=== PATIENT | female | born 1970 | race Caucasian/White ===

== ENCOUNTER 2019-11-15 11:13 | Outpatient (CLI) | payer MEDICARE, MEDICAID, SELFPAY ==
--- NOTE | 2019-11-15 11:22 | MM_ITS ---
WS: [id number] BILATERAL DIGITAL SCREENING MAMMOGRAM WITH CAD CLINICAL INFORMATION: SCREENING HISTORY: Screening mammogram. No current complaints. COMPARISON: June 23, 2018 TECHNIQUE: Bilateral CC and MLO views. FINDINGS: Bilateral breast reduction Fatty-replaced breasts bilaterally. No suspicious focal mass, asymmetry, calcifications, or microsoft bi architect ural distortion. No evidence of malignancy. MM/[place] [id number] IMPRESSION: BI-RADS: 1-Negative FOLLOW UP: 1 Year Follow-up Recommend return to annual screening mammography.
== END 2019-11-15 11:14 | disposition home or self-care (01) ==
PROVIDERS: PCP Nurse Practitioner Family; Visit Provider Nurse Practitioner Family
DX: Z12.31 Encounter for screening mammogram for malignant neoplasm of breast (principal)
CPT/HCPCS: 77067

== ENCOUNTER → 2019-12-09 07:34 | Outpatient (BNVA) | payer MEDICARE, MEDICAID, SELFPAY | PROVIDERS: PCP Nurse Practitioner Family; Visit Provider Nurse Practitioner Psychiatric/Mental Health | DX: F33.1 Major depressive disorder, recurrent, moderate (principal); F43.12 Post-traumatic stress disorder, chronic; F60.3 Borderline personality disorder; F78 Other intellectual disabilities | CPT/HCPCS: 99213 ==

== ENCOUNTER 2020-03-05 13:26 | Outpatient (CLI) | payer MEDICARE, MEDICAID, SELFPAY ==
--- NOTE | 2020-03-05 13:32 | CT_ITS ---
WS: [id number] CT CHEST TECHNIQUE: Noncontrast CT of the chest with coronal and sagittal reformatted images. CLINICAL INFORMATION: CHRONIC COUGH COMPARISON: None. DLP: 672.[address] scans at [facility] use at least one of these dose optimization techniques: automat ed exposure control; mA and/or kV adjustment per patient size (includes targeted exams where dose is matched to clinical indication); or iterative reconstruction. FINDINGS: Both lungs are well aerated. No acute pulmonary infiltrates. No consolidation or pleural fluid. No fo micki pneumonia. No suspicious pulmonary parenchymal opacities. Normal cardiac silhouette. Visualized thyroid gland is normal. No axillary lymphadenopathy. No mediastinal or hilar lymphadenopathy. CT/CT chest [place] [id number] IMPRESSION: 1. Normal chest CT
== END 2020-03-05 13:27 | disposition home or self-care (01) ==
LOC: RAD 13:27
PROVIDERS: Family Provider Nurse Practitioner Family; PCP Nurse Practitioner Family; Visit Provider Nurse Practitioner Family
DX: R05 Cough (principal)
CPT/HCPCS: 71250

== ENCOUNTER → 2020-05-10 10:55 | Outpatient (BNVA) | payer MEDICARE, MEDICAID, SELFPAY | PROVIDERS: Family Provider Nurse Practitioner Family; PCP Nurse Practitioner Family; Visit Provider Nurse Practitioner Psychiatric/Mental Health | DX: F33.1 Major depressive disorder, recurrent, moderate (principal); F43.12 Post-traumatic stress disorder, chronic; F60.3 Borderline personality disorder; F78 Other intellectual disabilities | CPT/HCPCS: 99213 ==

== ENCOUNTER → 2020-10-08 09:09 | Outpatient (BNVA) | payer MEDICARE, MEDICAID, SELFPAY | PROVIDERS: Family Provider Nurse Practitioner Family; PCP Nurse Practitioner Family; Visit Provider Nurse Practitioner Psychiatric/Mental Health | DX: F33.1 Major depressive disorder, recurrent, moderate (principal); F43.12 Post-traumatic stress disorder, chronic; F60.3 Borderline personality disorder; F78 Other intellectual disabilities | CPT/HCPCS: 99214 ==

== ENCOUNTER → 2020-12-03 10:18 | Outpatient (BNVA) | payer MEDICARE, MEDICAID, SELFPAY | PROVIDERS: Family Provider Nurse Practitioner Family; PCP Nurse Practitioner Family; Visit Provider Nurse Practitioner Psychiatric/Mental Health | DX: F33.1 Major depressive disorder, recurrent, moderate (principal); F43.12 Post-traumatic stress disorder, chronic; F60.3 Borderline personality disorder; F78 Other intellectual disabilities | CPT/HCPCS: 99213 ==

== ENCOUNTER → 2021-02-26 07:28 | Outpatient (BNVA) | payer MEDICARE, MEDICAID, SELFPAY | PROVIDERS: Family Provider Nurse Practitioner Family; PCP Nurse Practitioner Family; Visit Provider Nurse Practitioner Psychiatric/Mental Health | DX: F33.1 Major depressive disorder, recurrent, moderate (principal); F43.12 Post-traumatic stress disorder, chronic; F60.3 Borderline personality disorder; F78 Other intellectual disabilities | CPT/HCPCS: 99214 ==

== ENCOUNTER → 2021-03-13 07:37 | Outpatient (BNVA) | payer MEDICARE, MEDICAID, SELFPAY | PROVIDERS: Family Provider Nurse Practitioner Family; PCP Nurse Practitioner Family; Visit Provider Nurse Practitioner Psychiatric/Mental Health | DX: F33.1 Major depressive disorder, recurrent, moderate (principal); F43.12 Post-traumatic stress disorder, chronic; F60.3 Borderline personality disorder; F78 Other intellectual disabilities | CPT/HCPCS: 99214 ==

== ENCOUNTER → 2021-04-11 07:17 | Outpatient (BNVA) | payer MEDICARE, MEDICAID, SELFPAY | PROVIDERS: Family Provider Nurse Practitioner Family; PCP Nurse Practitioner Family; Visit Provider Nurse Practitioner Psychiatric/Mental Health | DX: F33.1 Major depressive disorder, recurrent, moderate (principal); F43.12 Post-traumatic stress disorder, chronic; F60.3 Borderline personality disorder; F78 Other intellectual disabilities | CPT/HCPCS: 99214 ==

== ENCOUNTER → 2021-07-11 08:48 | Outpatient (BNVA) | payer MEDICARE, MEDICAID, SELFPAY | PROVIDERS: Family Provider Nurse Practitioner Family; PCP Nurse Practitioner Family; Visit Provider Nurse Practitioner Psychiatric/Mental Health | DX: F33.1 Major depressive disorder, recurrent, moderate (principal); F43.12 Post-traumatic stress disorder, chronic; F60.3 Borderline personality disorder; Z79.899 Other long term (current) drug therapy | CPT/HCPCS: 99214 ==

== ENCOUNTER → 2021-08-20 12:56 | Outpatient (BNVA) | payer MEDICARE, MEDICAID, SELFPAY | PROVIDERS: Family Provider Nurse Practitioner Family; PCP Nurse Practitioner Family; Visit Provider Specialist | DX: G40.219 Localization-related (focal) (partial) symptomatic epilepsy and epileptic syndromes with complex partial seizures, intractable, without status epilepticus (principal); E66.01 Morbid (severe) obesity due to excess calories; Z68.45 Body mass index [BMI] 70 or greater, adult; Z99.3 Dependence on wheelchair | CPT/HCPCS: 99213 ==

== ENCOUNTER 2021-09-29 19:56 | Inpatient (IN) | payer MEDICARE, MEDICAID, SELFPAY ==
[2021-09-29 20:00] VITALS: BP 118/72; PULSE 90; RESP 28; TEMP 36.7; O2SAT 91; BMI 75.9
--- NOTE | 2021-09-29 20:24 | XRR_ITS ---
PROCEDURE INFORMATION: Exam: XR Chest Exam date and time: 09/29/2021 8:24 PM Age: 51 years old Clinical indication: Dyspnea; Additional info: SOB TECHNIQUE: Imaging protocol: XR of the chest. Views: 1 view. COMPARISON: CT chest [facility] [id number] 03/05/2020 1:48 PM FINDINGS: Lungs: Widespread patchy parenchymal airspace opacities in both lungs. Poorly defined pulmonary interstitium. Pleural spaces: Unremarkable. No pleural effusion. No pneumothorax. Heart/Mediastinum: Unremarkable. No cardiomegaly. Bones/joints: Unremarkable. XR/XR chest 1V portable [id number] IMPRESSION: Suspect multifocal nonspecific pneumonia process.
--- NOTE | 2021-09-29 20:25 | ECG_ITS ---
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 Measurements Intervals [place] Rate: 83 P: 11 IA: 135 QRS: 37 QRSD: 107 T: 0 QT: 368 QTc: 434 Interpretive Statements SINUS RHYTHM LOW QRS VOLTAGE IN PRECORDIAL LEADS [QRS DEFLECTION < 1.0 mV IN CHEST LEADS] NONSPECIFIC T-WAVE ABNORMALITY No previous ECG available for comparison Electronically Signed On 09-30-2021 23:51:10 MEDICAL UNDERWRITER by Jp Velez M.D. [email or web address] general [email or web address] [email or web address]/store/[id number]
[2021-09-29 20:27] VITALS: BP 118/72; PULSE 92; RESP 24; O2SAT 91
[2021-09-29] MEDS: dexamethasone 10 mg/mL INJ 6 MG IVP (20:35)
[2021-09-29 20:44] LABS: Troponin(5th) Baseline 14 ng/L (0-10)
[2021-09-29 20:54] LABS: D Dimer 1.27 ug/mIFEU (0-0.59)
[2021-09-29 20:55] LABS: Basophils % 0.2 %; Hemoglobin 13.3 g/dL (11.5-15.3); Lymphocytes # 0.4 10^3/uL (0.8-4.8); Lymphocytes % 6.5 %; Mean Corpuscular HGB Conc 32.4 g/dL (30.0-36.0); Mean Corpuscular Hemoglobin 24.7 pg (28.0-34.0); Mean Corpuscular Volume 76.2 fl (81-99); Mean Platelet Volume 9.5 fL (7.4-10.4); Monocytes # 0.2 10^3/uL (0.2-0.9); Monocytes % 3.5 %; Neutrophils # 5.91 10^3/uL (1.8-7.7); Neutrophils % 89.3 %; Nucleated Red Blood Cells % 0 %; Platelet Count 180 10^3/cmm (130-400); Red Blood Count 5.38 10^6/uL (4.1-5.3); Red Cell Distribution Width 16.6 % (12.1-15.1); White Blood Count 6.6 10^3/uL (4.0-10.0)
[2021-09-29 21:05] LABS: NT Pro B Type Natriuretic Pept 302 pg/mL (0-125); Procalcitonin 0.14 ng/mL (0-0.5)
[2021-09-29 21:16] LABS: Alanine Aminotransferase 35 U/L (0-33); Albumin Level 3.2 g/dL (3.5-5.2); Alkaline Phosphatase 69 IU/L (35-105); Blood Urea Nitrogen 11 mg/dL (6-20); C Reactive Protein 114.2 mg/L (0.0-4.9); Calcium 7.4 mg/dL (8.5-10.5); Carbon Dioxide 25 mmol/L (22-29); Chloride 91 mmol/L (98-107); Globulin 2.6 g/dL (1.3-4.6); Glomerular Filtration Rate 75.9 mL/min (90-130); Glucose 123 mg/dL (65-115); Osmolality Calculated 271 mOsm/kg (285-295); Sodium 130 mmol/L (136-145); Total Bilirubin 0.4 mg/dL (0.15-1.2); Total Protein 5.8 g/dL (6.6-8.7)
[2021-09-29 21:18] LABS: Anion Gap 18.3 (5-19); Aspartate Amino Transferase 47 U/L (0-32); Potassium 4.3 mmol/L (3.5-5.1)
[2021-09-29 21:29] VITALS: BP 128/76; PULSE 81; RESP 22; O2SAT 93
--- NOTE | 2021-09-29 21:43 | W.ED.SOB ---
HPI - SOB/Dyspnea General: Chief Complaint: ER Hold Stated Complaint: SOB Time Seen by Provider: 09/29/21 20:00 History of Present Illness: HPI Narrative: 51-year-old morbidly obese female presenting with shortness of breath. She states she has had a cough and some congestion. She is also had diarrhea. No vomiting. She has had body aches but no fever. She has had an exposure to COVID-19. MD elicited complaint: shortness of breath Pertinent past history: asthma and other Exacerbating factors: exertion Relieving factors: oxygen Known history of: asthma Associated symptoms: Reports chest congestion and cough; Deny abdominal pain, chest pain, diaphoresis, dizziness, fever(s) or vomiting Treatment prior to arrival: none Review of Systems Const: Denies: fever(s) or diaphoresis Card: Denies: chest pain Resp: Reports: chest congestion GI: Denies: abdominal pain or vomiting Neuro: Denies: dizziness PFSH ED PFSH: Medical History Borderline personality disorder Chronic post-traumatic stress disorder Intellectual functioning disability History of since child lucas Major depressive disorder, recurrent episode, moderate with anxious distress Morbid obesity Psychiatric care Sleep apnea Surgical History H/O uvulectomy And soft palate revision. S/P bilateral breast reduction (~1998) S/P colonoscopy (~06/2009) S/P tonsillectomy Family History Mother Diabetes Heart disease Hyperlipidemia Stroke Grandfather Diabetes Paternal Family/Other Diabetes Maternal Aunt Grandmother Heart disease Maternal Other Breast cancer Social History Smoking and tobacco status: never smoked Alcohol intake: never Physical Exam Const: GENERAL APPEARANCE: cooperative, in distress and ill appearing ORIENTATION/CONSCIOUSNESS: Yes awake, Yes oriented to person, Yes oriented to place and Yes oriented to time HENMT: COMMON NORMALS: normocephalic and atraumatic HEAD & SCALP: normocephalic and atraumatic FACE & SINUS: normal facial exam Eye: COMMON NORMALS: Equal, round and reactive pupils present and EOMs intact bilaterally PUPIL: Yes Equal, round and reactive pupils present Chest: COMMONS NORMALS: normal inspection of the chest Resp: EFFORT & INSPECTION: Yes tachypneic and Yes uses accessory muscles AUSCULTATION: rhonchi (Slight on right) Cardio: COMMON NORMALS: regular rate and regular rhythm RATE: regular rate RHYTHM: regular rhythm Neuro: SENSORIUM/ORIENTATION: Yes oriented to person, Yes oriented to place and Yes oriented to time Course Vital Signs: Vital signs: Vital Signs Temperature 98.0 F 09/29/21 20:00 Pulse Rate 80 09/30/21 00:45 Respiratory Rate 26 H 09/30/21 00:45 Blood Pressure 102/64 09/30/21 00:45 Pulse Oximetry 93 09/30/21 00:45 MDM - SOB/Dyspnea MDM Narrative: Medical decision making narrative: 51-year-old female presents in respiratory distress. She is using 6 L of oxygen, currently. She does not normally need oxygen. Chest x-ray shows bilateral pneumonia that is significant. White blood cell count is 6.6. Sodium is 130. She is vaccinated, but she is COVID-19 positive. Given her oxygen requirement, and look of her chest x-ray, she will require admission Lab Data: Labs: Lab Results 09/29/21 09/29/21 09/29/21 19:50 19:50 19:50 WBC RBC Hgb Hct MCV MCH MCHC RDW Plt Count MPV Neut % (Auto) Lymph % (Auto) Anderson % (Auto) Eos % (Auto) Baso % (Auto) Neut # (Auto) Lymph # (Auto) Anderson # (Auto) Eos # (Auto) Baso # (Auto) Nucleated RBC % (a uto) Nucleated RBCs # D-Dimer 1.27 ug/mIFEU H u g/mIFEU (0-0.59) Specimen Type Sample Site ABG pH ABG pCO2 ABG pO2 ABG HCO3 ABG Base Excess Gelacio Test Hematocrit Hgb O2 Saturation Carboxyhemoglobin Methemoglobin Total Hemoglobin O2 Delivery Device O2 Liters/Min Slitting And Shipping Supervisor ID Sodium 130 mmol/L L mmol /L (136-145) Potassium 4.3 mmol/L mmol/L (3.5-5.1) Chloride 91 mmol/L L mmol/ L (98-107) Carbon Dioxide 25 mmol/L mmol/L (22-29) Anion Gap 18.3 (5-19) BUN 11 mg/dL mg/dL (6-20) Creatinine 0.8 mg/dL mg/dL (0.5-0.9) GFR Calculation 75.9 mL/min L mL/ min (90-130) Glucose 123 mg/dL H mg/dL (65-115) Calculated Osmolal ity 271 mOsm/kg L mOs m/kg (285-295) Lactic Acid Calcium 7.4 mg/dL L mg/dL (8.5-10.5) Total Bilirubin 0.4 mg/dL mg/dL (0.15-1.2) AST 47 U/L H U/L (0-32) ALT 35 U/L H U/L (0-33) Alkaline Phosphata se 69 IU/L IU/L (35-105) Troponin T Baselin e 14 ng/L H ng/L (0-10) Troponin T 120 Min [place] Delta Troponin T C-Reactive Protein 114.2 mg/L H mg/L (0.0-4.9) NT-Pro-B Natriuret Pep 302 pg/mL H pg/mL (0-125) Total Protein 5.8 g/dL L g/dL (6.6-8.7) Albumin 3.2 g/dL L g/dL (3.5-5.2) Globulin 2.6 g/dL g/dL (1.3-4.6) Procalcitonin 0.14 ng/mL ng/mL (0-0.5) Coronavirus 229E ( PCR) SARS-CoV-2 (PCR) 09/29/21 09/29/21 09/29/21 20:42 20:42 21:00 WBC 6.6 10^3/uL 10^3/ uL (4.0-10.0) RBC 5.38 10^6/uL H 10 ^6/uL (4.1-5.3) Hgb 13.3 g/dL g/dL (11.5-15.3) Hct 41.0 % % (37.0-47.0) MCV 76.2 fl L fl (81-99) MCH 24.7 pg L pg (28.0-34.0) MCHC 32.4 g/dL g/dL (30.0-36.0) RDW 16.6 % H % (12.1-15.1) Plt Count 180 10^3/cmm 10^3 /cmm (130-400) MPV 9.5 fL fL (7.4-10.4) Neut % (Auto) 89.3 % % Lymph % (Auto) 6.5 % % Anderson % (Auto) 3.5 % % Eos % (Auto) 0.0 % % Baso % (Auto) 0.2 % % Neut # (Auto) 5.91 10^3/uL 10^3 /uL (1.8-7.7) Lymph # (Auto) 0.4 10^3/uL L 10^ 3/uL (0.8-4.8) Anderson # (Auto) 0.2 10^3/uL 10^3/ uL (0.2-0.9) Eos # (Auto) 0.0 10^3/uL 10^3/ uL (0.0-0.8) Baso # (Auto) 0.0 10^3/uL 10^3/ uL (0.0-0.1) Nucleated RBC % (a uto) 0 % % Nucleated RBCs # 0.0 /100WBC /100W BC D-Dimer Specimen Type Sample Site ABG pH ABG pCO2 ABG pO2 ABG HCO3 ABG Base Excess Gelacio Test Hematocrit Hgb O2 Saturation Carboxyhemoglobin Methemoglobin Total Hemoglobin O2 Delivery Device O2 Liters/Min Slitting And Shipping Supervisor ID Sodium Potassium Chloride Carbon Dioxide Anion Gap BUN Creatinine GFR Calculation Glucose Calculated Osmolal ity Lactic Acid 1.0 mmol/L mmol/L (0.5-2.2) Calcium Total Bilirubin AST ALT Alkaline Phosphata se Troponin T Baselin e Troponin T 120 Min [place] Delta Troponin T C-Reactive Protein NT-Pro-B Natriuret Pep Total Protein Albumin Globulin Procalcitonin Coronavirus 229E ( PCR) Not detected (NOT DETECT) SARS-CoV-2 (PCR) Detected A (NOT DETECT) 09/29/21 09/29/21 22:03 22:10 WBC RBC Hgb Hct MCV MCH MCHC RDW Plt Count MPV Neut % (Auto) Lymph % (Auto) Anderson % (Auto) Eos % (Auto) Baso % (Auto) Neut # (Auto) Lymph # (Auto) Anderson # (Auto) Eos # (Auto) Baso # (Auto) Nucleated RBC % (a uto) Nucleated RBCs # D-Dimer Specimen Type Arterial Sample Site Radial, left ABG pH 7.44 (7.35-7.45) ABG pCO2 44.0 mmHg mmHg (35-45) ABG pO2 64.6 mmHg L mmHg (80.0-100.0) ABG HCO3 29.9 mmol/L H mmo l/L (22-26) ABG Base Excess 5.0 mmol/L H mmol /L (-2.0-2.0) Gelacio Test Pos Hematocrit 42.2 % % (37-47) Hgb O2 Saturation 91.9 % L % (95-100) Carboxyhemoglobin 0.7 %THgb %THgb (0.4-20.1) Methemoglobin 0.5 % % (0.4-1.5) Total Hemoglobin 13.8 g/dL g/dL (12-16) O2 Delivery Device Nc O2 Liters/Min 5.0 % % Slitting And Shipping Supervisor ID Buttr Sodium Potassium Chloride Carbon Dioxide Anion Gap BUN Creatinine GFR Calculation Glucose Calculated Osmolal ity Lactic Acid Calcium Total Bilirubin AST ALT Alkaline Phosphata se Troponin T Baselin e Troponin T 120 Min [place] 13.09 ng/L H ng/L (0-10) Delta Troponin T -0.91 ABS# L ABS# (0-10) C-Reactive Protein NT-Pro-B Natriuret Pep Total Protein Albumin Globulin Procalcitonin Coronavirus 229E ( PCR) SARS-CoV-2 (PCR) Discharge Plan Discharge Patient Disposition: Admitted As Inpatient Clinical Impression: Pneumonia due to COVID-19 virus Condition: Stable Coding Level of Care Code ED Ethylene Plant Helper for g Fwd Exam Detailed
[2021-09-29 22:14] LABS: ABG PH Result 7.44 (7.35-7.45); Arterial Blood Gas Hematocrit 42.2 % (37-47); Blood Gas Allen Test Pos; Blood Gas Sample Site Radial, left; Blood Gas Sample Type Arterial; Carboxyhemoglobin 0.7 %THgb (0.4-20.1); HCO3 ABG 29.9 mmol/L (22-26); HGB O2 Sat 91.9 % (95-100); Methemoglobin 0.5 % (0.4-1.5); PO2 ABG 64.6 mmHg (80.0-100.0); Total Hemoglobin 13.8 g/dL (12-16)
[2021-09-29 22:15] LABS: Oxygen Device NC
--- NOTE | 2021-09-29 22:15 | PM.HP ---
Providers/Chief Complaint Primary Care Provider: JOSE A Thacker Chief Complaint: SOB History of Present Illness Lisa Pretty is a 51 year old female with no significant past medical history came in with chief complaint of Worsening shortness of breath going on for the last 3 to 4 days, accompanied by nonproductive cough, she is also complaining of diarrhea 4-5 episodes daily for the last 3 to 4 days. Upon arrival in the ER she was worked up for above-mentioned complaints: Pertinent imaging studies: X-ray chest: Bilateral widespread multifocal infiltrate. Pertinent labs: WBC 6.6 H&H 13.3/ 41 , PLT : 180 , serum sodium 130 serum potassium 4.3, BUN / serum creatinine : 11/0.8 , AST 47 ALT 35 ALP 69, troponin trend without significant delta of, proBNP 302 D-dimer: 1.27 , CRP:114 , procalcitonin: 0.14 COVID PCR : Positive Patient received 6 mg IV dexamethasone in the ER Review of Systems Const: Denies: fever(s), change in appetite or diaphoresis Card: Denies: palpitations, edema, swelling of feet/ankles or leg pain with exertion Resp: Denies: wheezing or pain on inspiration GI: Denies: abdominal pain, nausea, vomiting or constipation : Denies: flank pain Musc: Denies: back pain, extremity pain or extremity swelling Neuro: Denies: headache(s), difficulty walking or confusion Medications/Allergies Home Medications Medication Instructions Recorded Confirmed Last Taken Type albuterol sulfate 90 mcg/actuation 2 inh INHALATION Q6H PRN 12/08/19 08/20/21 Unknown History breath activated powder inhaler hydrocodone 5 mg-acetaminophen 325 1 tab PO BID PRN 12/08/19 08/20/21 Unknown History mg tablet omeprazole 40 mg capsule,delayed 40 mg PO DAILY 12/08/19 08/20/21 Unknown History release furosemide 20 mg tablet 40 mg PO QAM tab 11/29/20 08/20/21 Unknown History potassium chloride 10 mEq 20 meq PO DAILY tab 11/29/20 08/20/21 Unknown History tablet,extended release(part/cryst) bupropion HCl 200 mg tablet,12 hr 200 mg PO .morning #90 tab 07/11/21 08/20/21 Unknown Rx sustained-release hydroxyzine HCl 50 mg tablet 50 mg PO BID PRN #60 tab 07/11/21 08/20/21 Unknown Rx zolpidem 5 mg tablet 5 mg PO .bedtime #30 tab 07/11/21 08/20/21 Unknown Rx lamotrigine 100 mg tablet See Rx Instructions .ROUTE 08/20/21 08/20/21 Unknown Rx .COMPLEX #180 tab Allergies Allergy/AdvReac Type Severity Reaction Status Date / Time aripiprazole [From Abilify] Allergy Unknown Verified 08/20/21 13:37 fluoxetine [From Prozac] Allergy Unknown Verified 08/20/21 13:37 haloperidol [From Haldol] Allergy Unknown Verified 08/20/21 13:37 Sulfa (Sulfonamide Allergy Unknown Verified 08/20/21 13:37 Antibiotics) PFSH Acute PFSH: Medical History Borderline personality disorder Chronic post-traumatic stress disorder Intellectual functioning disability History of since child lucas Major depressive disorder, recurrent episode, moderate with anxious distress Morbid obesity Psychiatric care Sleep apnea Surgical History H/O uvulectomy And soft palate revision. S/P bilateral breast reduction (~1998) S/P colonoscopy (~06/2009) S/P tonsillectomy Family History Mother Diabetes Heart disease Hyperlipidemia Stroke Grandfather Diabetes Paternal Family/Other Diabetes Maternal Aunt Grandmother Heart disease Maternal Other Breast cancer Social History Smoking and tobacco status: never smoked Alcohol intake: never Vitals/I&O/Wt Last Vital Signs Temp 98.0 F 09/29/21 20:00 Pulse 81 09/29/21 21:29 Resp 22 H 09/29/21 21:29 BP 128/76 09/29/21 21:29 Pulse Ox 93 09/29/21 21:29 Weight last 48 hrs Weight 170.551 kg Physical Exam Const: COMMON NORMALS: patient oriented x3 HENMT: COMMON NORMALS: normocephalic and atraumatic HEAD & SCALP: normocephalic Resp: COMMON NORMALS: No retractions and clear to auscultation bilaterally EFFORT & INSPECTION: Yes symmetric chest movement AUSCULTATION: clear to auscultation bilaterally OTHER: Diminished air entry bilaterally Cardio: COMMON NORMALS: regular rate, regular rhythm, S1 normal heart sound present, S2 normal heart sound present, No gallops present (Cardio), No murmurs present (Cardio), No rub (Cardio) and Peripheral pulses 2+ throughout RATE: regular rate RHYTHM: regular rhythm HEART SOUNDS: S1 normal heart sound present and S2 normal heart sound present PERIPHERAL PULSES: Peripheral pulses 2+ throughout GI: COMMON NORMALS: Normal to inspection, nondistended, normoactive bowel sounds present, Soft to palpation, non-tender, No hepatosplenomegaly present and no masses AUSCULTATION: Yes normoactive bowel sounds PALPATION: Yes Soft to palpation and Yes No hepatosplenomegaly present RECTAL EXAM: deferred Extremity: COMMON NORMALS: no clubbing, cyanosis or edema and no pedal edema Neuro: COMMON NORMALS: patient oriented x3 Data : 09/29/21 20:42 09/29/21 19:50 Micro: Microbiology 09/29/21 20:45 Blood Culture - Preliminary Blood SPECIMEN COLLECTED 09/29/21 20:42 Blood Culture - Preliminary Blood SPECIMEN COLLECTED A&P Assessment and plan (1) Pneumonia due to COVID-19 virus: Status: Acute (2) Morbid obesity: Status: Acute (3) Hyponatremia: Status: Acute (4) Diarrhea: Status: Acute Additional A&P Information 51 year old female with no significant past medical history came in with chief complaint of Worsening shortness of breath going on for the last 3 to 4 days, accompanied by nonproductive cough, she is also complaining of diarrhea 4-5 episodes daily for the last 3 to 4 days. #Pneumonia secondary to COVID-19 virus: Follow inflammatory markers (ESR CRP D-dimer LDH, ferritin) Follow blood culture Sputum culture Monitor x-ray chest Monitor ABG Continue remdesivir for 5 days Continue dexamethasone 6 mg IV daily for 10 days Status post 1 dose of Actemra Empirically on ceftriaxone and azithromycin Lovenox 40 SQ twice daily Supplemental oxygen as needed DuoNebs Incentive spirometer Flutter valve #Hypovolemic hyponatremia: Likely secondary to diarrhea and poor oral intake Monitor BMP We will encourage oral intake #Diarrhea likely secondary to viral syndrome Stool studies #CODE STATUS: Full code Attestations Medical Necessity Statement*: Patient is to be in hospital for management of COVID-pneumonia.Anticipated length of stay greater than 2 midnights. Coding Level of Care Code Acute Assisted Living Housekeeper for g Fwd Exam Detailed Diagnoses Pneumonia due to COVID-19 virus U07.1; J12.82 Morbid obesity E66.01 Hyponatremia E87.1 Diarrhea R19.7
--- NOTE | 2021-09-29 22:25 | ECG_ITS ---
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 Measurements Intervals [place] Rate: 80 P: 23 MT: 134 QRS: 55 QRSD: 89 T: 30 QT: 389 QTc: 451 Interpretive Statements SINUS RHYTHM Compared to ECG 09/29/2021 20:44:10 T-wave abnormality no longer present Electronically Signed On 09-30-2021 23:58:46 RESEARCH BIOLOGIST by Jp Velez M.D. [email or web address] Grouphighland community hospitalWavemaker Softwarejoint township district memorial hospitalCardinal Media Technologies/store/OM/[id number]/ecg/[id number]
[2021-09-29 22:54] VITALS: BP 159/69; PULSE 77; RESP 22; O2SAT 92
[2021-09-29 22:56] LABS: Adenovirus Not Detected (NOT DETECT); Chlamydia Pneumoniae Not Detected (NOT DETECT); Coronavirus 229E,HKU1,NL63,OC4 Not Detected (NOT DETECT); Human Metapneumovirus Not Detected (NOT DETECT); Human Rhinovirus/Enterovirus Not Detected (NOT DETECT); Influenza A Not Detected (NOT DETECT); Influenza A H1 Not Detected (NOT DETECT); Influenza A H1-2009 Not Detected (NOT DETECT); Influenza A H3 Not Detected (NOT DETECT); Influenza B Not Detected (NOT DETECT); Mycoplasma Pneumoniae Not Detected (NOT DETECT); Parainfluenza Virus Type 1 Not Detected (NOT DETECT); Parainfluenza Virus Type 2 Not Detected (NOT DETECT); Parainfluenza Virus Type 3 Not Detected (NOT DETECT); Parainfluenza Virus Type 4 Not Detected (NOT DETECT); Respiratory Syncytial Virus A Not Detected (NOT DETECT); Respiratory Syncytial Virus B Not Detected (NOT DETECT); SARS-COV-2 Detected (NOT DETECT)
[2021-09-29 23:06] LABS: Troponin 5 2HR 13.09 ng/L (0-10)
[2021-09-29] MEDS: ipratropium-albuterol 3 mL Neb INHALATION (23:09)
[2021-09-29 23:13] VITALS: PULSE 76; RESP 22; O2SAT 90
[2021-09-29 23:14] LABS: Troponin 5 2HR Delta -0.91 ABS# (0-10)
[2021-09-29] MEDS: cefTRIAXone 1,000 MG in sodium chloride 0.9% (plus) 50 ML 100 MG IV (23:34)
[2021-09-29] MEDS: enoxaparin 40 mg/0.4 mL Syringe SUBCUT (23:35)
[2021-09-29] MEDS: azithromycin 500 MG in sodium chloride 0.9% 250 ML 250 MG IV (23:42)
[2021-09-30] VITALS (16 sets, daily range): BP systolic 102–150; BP diastolic 59–77; PULSE 0–82; RESP 14–26; TEMP 36.3–36.8; O2SAT 90–98
[2021-09-30] MEDS: remdesivir 200 MG in sodium chloride 0.9% (100 ml) 60 ML 100 MG IV (01:12)
[2021-09-30] MEDS: tocilizumab 800 MG in sodium chloride 0.9% (100 ml) 100 ML 100 MG IV (02:04)
--- NOTE | 2021-09-30 02:25 | ECG_ITS ---
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 Measurements Intervals [place] Rate: 72 P: 26 WA: 143 QRS: 49 QRSD: 102 T: 19 QT: 414 QTc: 455 Interpretive Statements SINUS RHYTHM Compared to ECG 09/29/2021 22:33:03 No significant changes Electronically Signed On 09-30-2021 23:59:14 JUNK REMOVAL SPECIALIST by Jp Velez M.D. [email or web address] health madisonUtripmercy health clermont hospitalCAILabs/store/OM/[id number]
[2021-09-30 02:32] LABS: Basophils % 0.2 %; Hematocrit 42.1 % (37.0-47.0); Hemoglobin 13.1 g/dL (11.5-15.3); Lymphocytes # 0.3 10^3/uL (0.8-4.8); Lymphocytes % 5.5 %; Mean Corpuscular HGB Conc 31.1 g/dL (30.0-36.0); Mean Corpuscular Volume 77.1 fl (81-99); Mean Platelet Volume 9.8 fL (7.4-10.4); Monocytes # 0.2 10^3/uL (0.2-0.9); Monocytes % 2.6 %; Neutrophils # 5.37 10^3/uL (1.8-7.7); Neutrophils % 91.4 %; Nucleated Red Blood Cells % 0 %; Platelet Count 181 10^3/cmm (130-400); Red Blood Count 5.46 10^6/uL (4.1-5.3); Red Cell Distribution Width 16.5 % (12.1-15.1); White Blood Count 5.9 10^3/uL (4.0-10.0)
[2021-09-30 02:48] LABS: Troponin 5 6HR 9.57 ng/L (0-10); Troponin 5 6HR Delta -4.43 ng/L (0-12)
[2021-09-30 02:52] LABS: Alanine Aminotransferase 34 U/L (0-33); Albumin Level 3.2 g/dL (3.5-5.2); Alkaline Phosphatase 61 IU/L (35-105); Anion Gap 19.2 (5-19); Aspartate Amino Transferase 37 U/L (0-32); Blood Urea Nitrogen 10 mg/dL (6-20); Calcium 7.9 mg/dL (8.5-10.5); Carbon Dioxide 23 mmol/L (22-29); Chloride 95 mmol/L (98-107); Globulin 2.5 g/dL (1.3-4.6); Glomerular Filtration Rate 105.8 mL/min (90-130); Glucose 148 mg/dL (65-115); Osmolality Calculated 280 mOsm/kg (285-295); Potassium 3.2 mmol/L (3.5-5.1); Sodium 134 mmol/L (136-145); Total Bilirubin 0.3 mg/dL (0.15-1.2); Total Protein 5.7 g/dL (6.6-8.7)
[2021-09-30 02:54] LABS: Creatine Phosphokinase 699 U/L (26-192)
[2021-09-30] MEDS: ipratropium-albuterol 3 mL Neb INHALATION ×4 (04:52→21:01)
--- NOTE | 2021-09-30 08:28 | PC.PHAR ---
pt states she takes care of her own medications
[2021-09-30] MEDS: pantoprazole DR 40 mg Tablet PO (10:12)
[2021-09-30] MEDS: dexamethasone 10 mg/mL INJ 6 MG IVP (10:12)
--- NOTE | 2021-09-30 14:12 | CT_ITS ---
WS: [id number] CTA OF THE CHEST WITH PULMONARY EMBOLISM PROTOCOL TECHNIQUE: High-resolution contrast enhanced CTA of the chest with coronal and sagittal reformatted i mages with pulmonary embolism protocol. MIP images are also reviewed. CLINICAL INFORMATION: covid, elevated dimer COMPARISON: CT chest March 05, 2020 and radiograph September 29, 2021 DLP: 506.[address] scans at [facility] use at least one of these dose optimization techniques: automated e xposure control; mA and/or kV adjustment per patient size (includes targeted exams where dose is matc hed to clinical indication); or iterative reconstruction. FINDINGS: Exam is limited due to body habitus and breathing artifact. Proximal main pulmonary arteries are normal. Normal segmental pulmonary arteries considering artifact . Subsegmental pulmonary arteries not well evaluated. Diffuse bilateral groundglass infiltrates similar to radiograph September 29, 2027 compatible with Covi d 19 pneumonia. No significant pleural fluid. Infiltrates more prominent in the perihilar regions and upper lobes bilaterally. Cardiomegaly. Normal caliber thoracic aorta. No mediastinal or hilar lymphadenopathy. No axillary lym phadenopathy. CT/CT angio chest PE protcl [id number] IMPRESSION: 1. No evidence of proximal pulmonary embolus. Subsegmental and distal pulmonar y arteries not well evaluated. 2. Diffuse bilateral groundglass pulmonary infiltrates compatible with Covid 1 9 pneumonia appears stable since radiograph September 29, 2021. This is more prom inent in the perihilar regions and upper lobes bilaterally. 3. Normal caliber thoracic aorta. 4. Cardiomegaly.
[2021-09-30 14:59] LABS: NT Pro B Type Natriuretic Pept 312 pg/mL (0-125); Procalcitonin 0.17 ng/mL (0-0.5)
[2021-09-30 15:10] LABS: Iron 13 ug/dL (37-145); Percent Saturation 5.5 % (20-50); Total Iron Binding Capacity 236 mcg/dl; Unsaturated Iron Binding 223 ug/dL (112-347)
--- NOTE | 2021-09-30 15:17 | P.PN_ITS ---
Subjective Subjective: Interval history: Admitted overnight. Examination patient lying comfortably in bed in left lateral position, without clothes covered in bed sheet. Awake alert. Able to have complete conversation. States feeling hot. Currently on 40 L 65% saturating 88%. States was diag nosed with sleep apnea in the past but was not able to tolerate BiPAP so was taken away. Currently states he is feeling better than when she came in. Denies any nausea vomiting, headache. Vitals/I&O/Wt Last Vital Signs Temp 98.0 F 09/29/21 20:00 Pulse 67 09/30/21 12:28 Resp 18 09/30/21 12:28 BP 120/77 09/30/21 05:55 Pulse Ox 93 09/30/21 12:28 09/30/21 09/30/21 09/30/21 06:59 14:59 22:59 Intake Total 360 / 360 Balance 360 / 360 Weight last 48 hrs Weight 170.551 kg Physical Exam Narrative: EXAM NARRATIVE: General: No acute distress, AO x3, morbid obesity, cushingoid body habitus, on heated high flow HEENT: PERRLA,: Pupils bilaterally equal and reactive Chest: Bilateral bronchial breath sounds, occasional rhonchi present over the lung bedoya, decreased air entry all over the lung bedoya most likely from body habitus CVS: S1-S2 regular, no murmurs, no tachycardia, no gallops, no rubs Abdomen: Soft, nontender, no organomegaly, bowel sounds present Neuro: No focal deficits, no facial deformity, AO x3, power 5/5 in all limbs Data : 09/30/21 02:17 09/30/21 02:17 Micro: Microbiology 09/29/21 20:45 Blood Culture - Preliminary Blood SPECIMEN COLLECTED 09/29/21 20:42 Blood Culture - Preliminary Blood SPECIMEN COLLECTED A&P Assessment and plan (1) Pneumonia due to COVID-19 virus: Status: Acute (2) Morbid obesity: Status: Acute (3) Obstructive sleep apnea: Status: Acute (4) Hyponatremia: Status: Acute (5) Respiratory failure with hypoxia: Status: Acute Additional A&P Information Hypoxia secondary to COVID-19 pneumonia: Moderate to severe disease Oxygen supplementation keeping saturation over 88%. Dexamethasone 6 mg daily. Remdesivir to finish a 5-day course. Vitamin C, zinc. DuoNebs every 4 hour, budesonide twice daily Pulmonary toilet with incentive spirometry flutter valve. We will monitor inflammatory markers including CRP, D-dimer every 48 hours. Post 1 dose of Actemra on admission on September 29 D-dimer elevated. Check CTA to rule out pulmonary embolism. Switch from Lovenox 40 mg every 12 hourly to Eliquis 5 mg twice daily. Will monitor for anemia or blood loss. Procalcitonin negative, check sputum culture, urine Legionella, bacterial antigen, urinalysis. For now low suspicion of superimposed bacterial infection. Continue with azithromycin orally to finish a 5-day course. Given hypoxia will try to keep patient as negative as possible. Raman catheterization. Lasix 40 mg IV once. Strict input output charting, daily weights. Echocardiogram. Obstructive sleep apnea: Diagnosed. Noncompliant to BiPAP at home. If needed will do BiPAP nightly. Continue other chronic home medications related to intellectual disability. Check TSH, vitamin B12, folate, A1c, lipid panel, iron panel. Hyponatremia: Improving. Check urine lites. Continue current treatment. Full code. Regular diet. Famotidine for PUD prophylaxis. Request for help with DVT prophylaxis. Attestations Medical Necessity Statement*: Admission for severe hypoxia secondary COVID-19 pneumonia requiring high heated high flow Time Spent in Patient Care: Greater than 35 minutes (>than 50% of time spent in counselling and/or direct pt care on unit) . Coding Level of Care Code Acute Barrel Lathe Operator Outside for [facility] Fwd Diagnoses Pneumonia due to COVID-19 virus U07.1; J12.82 Morbid obesity E66.01 Obstructive sleep apnea G47.33 Hyponatremia E87.1 Respiratory failure with hypoxia J96.91
[2021-09-30] MEDS: iohexol 350 mg/mL 100 mL Btl IV (16:17)
[2021-09-30] MEDS: benzonatate 100 mg Capsule 200 MG PO ×2 (17:19→21:29)
[2021-09-30] MEDS: FUROsemide 10 mg/mL SDV 4mL 40 MG IVP (17:19)
[2021-09-30] MEDS: ascorbic acid 500 mg Tablet PO (17:20)
[2021-09-30] MEDS: ferrous gluconate 324 mg Tablet PO (17:20)
[2021-09-30] MEDS: potassium chloride ER 20 mEq Tablet 40 MEQ PO (17:20)
[2021-09-30 17:23] LABS: Vitamin B12 611 pg/mL (232-1245)
[2021-09-30 18:33] LABS: Urine Appearance Clear (CLEAR); Urine Color Yellow (Yellow); pH Urine 6.5 (5-7)
[2021-09-30 18:34] LABS: Add Urine Culture? No; Add Urine Microscopic? YES; Bacteria Urine TRACE /hpf; Bilirubin Urine Neg (Negative); Blood Urine 2+ (Negative); Glucose Urine UA Norm (Normal); Ketones Urine 1+ (Negative); Leukocyte Esterase Urine Negative (Negative); Nitrate Urine Negative (Negative); Protein Urine Neg (Negative); RBC Urine 0-4 /hpf (0-2); Specific Gravity, Urine 1.005 (1.005-1.030); Urobilinogen Urine Norm (Negative); WBC Urine 0-4 /hpf (0-5)
[2021-09-30 18:38] LABS: Potassium, Radom Urine 13 mmol/L; Urine Random Chloride 28 mmol/L; Urine Random Sodium 22 mmol/L
[2021-09-30 19:51] LABS: Folate Level 13.9 ng/mL (4.8-37.3)
[2021-09-30] MEDS: budesonide 0.5 mg/2 mL Neb INHALATION (21:01)
[2021-09-30] MEDS: apixaban 5 mg Tablet PO (21:29)
[2021-09-30] MEDS: cefTRIAXone 1,000 MG in sodium chloride 0.9% (plus) 50 ML 100 MG IV (21:29)
[2021-09-30] MEDS: azithromycin 250 mg Tablet 500 MG PO (21:29)
[2021-09-30] MEDS: lamoTRIgine 100 mg Tablet PO (21:29)
[2021-10-01] VITALS (18 sets, daily range): BP systolic 109–157; BP diastolic 61–79; PULSE 0–89; RESP 18–67; TEMP 36.6–36.9; O2SAT 92–98
[2021-10-01] MEDS: ipratropium-albuterol 3 mL Neb INHALATION ×5 (02:26→20:10)
--- NOTE | 2021-10-01 02:27 | PC.NURSE ---
Patient refusing to keep gown or clothing on. Patient refusing to keep equipment monitor phototypesetting on.
[2021-10-01] MEDS: zolpidem 5 mg Tablet PO ×2 (02:45→22:50)
[2021-10-01] MEDS: acetaminophen 325 mg Tablet 650 MG PO ×2 (02:45→22:50)
--- NOTE | 2021-10-01 06:00 | XR_ITS ---
WS: [id number] PORTABLE CHEST HISTORY: covid COMPARISON: 09/29/2021 Lung volumes are decreased. Dense areas of consolidation throughout both lungs. No improvement. There is a slight increase in the amount of consolidation. No pneumomediastinum. No pleural effusion or pn eumothorax. Cardiac size: Normal. Mediastinum/Aorta: Normal mediastinum. No osseous abnormality seen. XR/XR chest 1V portable [id number] IMPRESSION: Mild progression of multilobar opacifications since the prior study.
[2021-10-01 06:20] LABS: Hematocrit 44.6 % (37.0-47.0); Hemoglobin 13.6 g/dL (11.5-15.3); Lymphocytes # 0.5 10^3/uL (0.8-4.8); Lymphocytes % 9.5 %; Mean Corpuscular HGB Conc 30.5 g/dL (30.0-36.0); Mean Corpuscular Hemoglobin 23.9 pg (28.0-34.0); Mean Corpuscular Volume 78.2 fl (81-99); Monocytes # 0.3 10^3/uL (0.2-0.9); Monocytes % 6.3 %; Neutrophils # 3.99 10^3/uL (1.8-7.7); Nucleated Red Blood Cells % 0 %; Platelet Count 221 10^3/cmm (130-400); Red Cell Distribution Width 16.8 % (12.1-15.1); White Blood Count 4.8 10^3/uL (4.0-10.0)
[2021-10-01 06:45] LABS: Alanine Aminotransferase 34 U/L (0-33); Albumin Level 3.5 g/dL (3.5-5.2); Alkaline Phosphatase 59 IU/L (35-105); Anion Gap 17.3 (5-19); Aspartate Amino Transferase 35 U/L (0-32); Blood Urea Nitrogen 13 mg/dL (6-20); C Reactive Protein 72.5 mg/L (0.0-4.9); Calcium 8.8 mg/dL (8.5-10.5); Carbon Dioxide 29 mmol/L (22-29); Chloride 98 mmol/L (98-107); Cholesterol 126 mg/dL (0-200); Globulin 2.7 g/dL (1.3-4.6); Glomerular Filtration Rate 88.6 mL/min (90-130); Glucose 115 mg/dL (65-115); HDL Cholesterol 21 mg/dL (60-100); LDL Cholesterol Calculated 75 mg/dL (50-129); Osmolality Calculated 293 mOsm/kg (285-295); Potassium 3.3 mmol/L (3.5-5.1); Sodium 141 mmol/L (136-145); Total Bilirubin 0.3 mg/dL (0.15-1.2); Total Protein 6.2 g/dL (6.6-8.7); Triglycerides 152 mg/dL (0-150); VLDL Cholestrol Calculation 30 mg/dL (0-30)
[2021-10-01 06:55] LABS: Estmated Average Glucose 120; Hemoglobin A1C 5.8 % (4.0-6.0)
[2021-10-01 07:08] LABS: Erythrocyte Sedimentation Rate 23 mm/hr (0-15)
[2021-10-01 07:14] LABS: D Dimer 0.73 ug/mIFEU (0-0.59)
[2021-10-01] MEDS: perflutren protein-a microsphr 0.22 mg/mL SDV 3 mL IV (08:32)
[2021-10-01] MEDS: zinc gluconate 50 mg Tablet PO (08:53)
[2021-10-01] MEDS: ascorbic acid 500 mg Tablet PO ×2 (08:53→16:47)
[2021-10-01] MEDS: dexamethasone 10 mg/mL INJ 6 MG IVP (08:53)
[2021-10-01] MEDS: ferrous gluconate 324 mg Tablet PO ×2 (08:53→16:47)
[2021-10-01] MEDS: buPROPion SR (12 HR) 100 mg Tablet 200 MG PO (08:53)
[2021-10-01] MEDS: pantoprazole DR 40 mg Tablet PO (08:53)
[2021-10-01] MEDS: benzonatate 100 mg Capsule 200 MG PO ×3 (08:54→20:04)
[2021-10-01] MEDS: lamoTRIgine 100 mg Tablet PO ×2 (08:56→20:04)
[2021-10-01] MEDS: apixaban 5 mg Tablet PO ×2 (08:56→20:04)
[2021-10-01] MEDS: budesonide 0.5 mg/2 mL Neb INHALATION ×2 (09:01→20:10)
[2021-10-01] MEDS: potassium chloride ER 20 mEq Tablet 40 MEQ PO ×3 (11:36→16:58)
[2021-10-01] MEDS: FUROsemide 10 mg/mL SDV 4mL 40 MG IVP (11:36)
--- NOTE | 2021-10-01 14:13 | USCV_ITS ---
Lisa Pretty Age: 51 Gender: F : 1970 Exam Date: 10/01/2021 07:02 Ordering Phys: Luis Daniel Brito MD Technologist: WALLACE Exam Location: [facility] [place] Indication: HYPOXIA, COVID BP: 120 / 76 HR: 61 Rhythm: Sinus Technical Quality: Very technically difficult study MEASUREMENTS (Male / Female) Normal Values 2D ECHO LV Ejection Fraction MOD 2C 58.7 % LV Ejection Fraction 2C AL 58.9 % FINDINGS Left Ventricle Normal LV size and ejection fraction of 63%. Right Ventricle Could not be visualized well Right Atrium Could not be visualized well Left Atrium Could not be visualized well Mitral Valve Could not be visualized Aortic Valve Could not be visualized Tricuspid Valve Could not be visualized Pulmonic Valve Could not be visualized Pericardium No pericardial effusion. Aorta Aorta not well visualized. CONCLUSIONS Left ventricle appears to be of normal size with an ejection fraction of 63% ,based on contrast echo. The other cardiac chambers could not be visualized well. No pericardial effusion. Technically very difficult study Dr Jp Velez MD FACC (Electronically Signed) Final Date: 02 October 2021 06:04 S
--- NOTE | 2021-10-01 15:26 | P.PN_ITS ---
Subjective Subjective: Interval history: No acute events overnight. Patient has remained hemodynamically stable. On examination patient was down 2 L high flow 45 L 50% saturating 96%. During the day we will transition over to high flow nasal cannula. Patient states she is feeling better. Sitting up in chair. Denies any nausea vomiting, headache. Working well with I-S and Acapella. Semiproning herself when laying in bed. Agreeable for BiPAP at night if needed. Vitals/I&O/Wt Last Vital Signs Temp 98.4 F 10/01/21 12:00 Pulse 83 10/01/21 15:12 Resp 18 10/01/21 15:10 BP 114/70 10/01/21 12:00 Pulse Ox 95 10/01/21 15:10 10/01/21 10/01/21 10/01/21 06:59 14:59 22:59 Intake Total 240 / 240 Balance 240 / 240 Weight last 48 hrs Weight 170.551 kg Weight 170.551 kg Physical Exam Narrative: EXAM NARRATIVE: General: No acute distress, AO x3, morbid obesity, cushingoid body habitus, on high flow nasal canula HEENT: PERRLA,: Pupils bilaterally equal and reactive Chest: Bilateral bronchial breath sounds, occasional rhonchi present over the lung bedoya, decreased air entry all over the lung bedoya most likely from body habitus CVS: S1-S2 regular, no murmurs, no tachycardia, no gallops, no rubs Abdomen: Soft, nontender, no organomegaly, bowel sounds present Neuro: No focal deficits, no facial deformity, AO x3, power 5/5 in all limbs Urinary Catheter Management: Raman: Cath Placed During This Visit: yes Reason for Continuing Indwelling Catheter: Acute Urinary Retention or Obstruction Urinary Catheter Date of Insertion: 09/30/21 Urinary Catheter Time of Insertion: 17:52 Data : 10/01/21 06:03 10/01/21 06:03 Micro: Microbiology 09/30/21 18:10 Legionella Urinary Antigen - Final Urine Catheterized 09/30/21 18:10 Bacterial Antigens - Final Urine Kidney 09/29/21 20:45 Blood Culture - Preliminary Blood NEGATIVE TO DATE 09/29/21 20:42 Blood Culture - Preliminary Blood NEGATIVE TO DATE 09/30/21 18:10 Stool Lactoferrin - Final Stool - Stool Aspirate A&P Assessment and plan (1) Pneumonia due to COVID-19 virus: Status: Acute (2) Morbid obesity: Status: Acute (3) Obstructive sleep apnea: Status: Acute (4) Hyponatremia: Status: Acute (5) Respiratory failure with hypoxia: Status: Acute Plan Hypoxia secondary to COVID-19 pneumonia: Moderate to severe disease. Improving. Oxygen supplementation keeping saturation over 88%. Dexamethasone 6 mg daily. Remdesivir to finish a 5-day course. Vitamin C, zinc. DuoNebs every 4 hour, budesonide twice daily Pulmonary toilet with incentive spirometry flutter valve. We will monitor inflammatory markers including CRP, D-dimer every 48 hours.? Post 1 dose of Actemra on admission on September 29 D-dimer elevated.? CT negative pulmonary embolism. For now continue with Eliquis 5 mg twice daily. Will monitor for anemia or blood loss. Procalcitonin negative, check sputum culture, urine Legionella, bacterial antigen, urinalysis.? For now low suspicion of superimposed bacterial infection.? Continue with azithromycin orally to finish a 5-day course. Given hypoxia will try to keep patient as negative as possible. Raman catheterization.? Repeat Lasix 40 mg IV once. Replace potassium. Strict input output charting, daily weights. Echocardiogram done and results pending. Obstructive sleep apnea: Diagnosed.? Noncompliant to BiPAP at home.? If needed will do BiPAP nightly. Patient is agreeable. Continue other chronic home medications related to intellectual disability. Hyponatremia: Resolved. Full code. Regular diet. Famotidine for PUD prophylaxis. Eliquis will help with DVT prophylaxis. 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
[2021-10-01] MEDS: remdesivir 100 MG in sodium chloride 0.9% (100 ml) 80 ML IV (16:47)
[2021-10-01] MEDS: azithromycin 250 mg Tablet 500 MG PO (20:04)
[2021-10-01] MEDS: cefTRIAXone 1,000 MG in sodium chloride 0.9% (plus) 50 ML 100 MG IV (22:50)
[2021-10-02] VITALS (12 sets, daily range): BP systolic 108–190; BP diastolic 56–81; PULSE 69–87; RESP 18–22; TEMP 36.3–37; O2SAT 91–99
[2021-10-02] MEDS: ipratropium-albuterol 3 mL Neb INHALATION ×5 (03:53→20:10)
[2021-10-02 06:30] LABS: D Dimer 0.71 ug/mIFEU (0-0.59)
[2021-10-02 06:44] LABS: Alanine Aminotransferase 37 U/L (0-33); Albumin Level 3.9 g/dL (3.5-5.2); Alkaline Phosphatase 68 IU/L (35-105); Anion Gap 19.1 (5-19); Aspartate Amino Transferase 36 U/L (0-32); Blood Urea Nitrogen 16 mg/dL (6-20); C Reactive Protein 37.2 mg/L (0.0-4.9); Calcium 8.5 mg/dL (8.5-10.5); Carbon Dioxide 28 mmol/L (22-29); Chloride 95 mmol/L (98-107); Globulin 2.6 g/dL (1.3-4.6); Glomerular Filtration Rate 75.9 mL/min (90-130); Glucose 109 mg/dL (65-115); Osmolality Calculated 290 mOsm/kg (285-295); Potassium 3.1 mmol/L (3.5-5.1); Sodium 139 mmol/L (136-145); Total Bilirubin 0.4 mg/dL (0.15-1.2); Total Protein 6.5 g/dL (6.6-8.7)
[2021-10-02 07:06] LABS: Erythrocyte Sedimentation Rate 17 mm/hr (0-15)
[2021-10-02 07:09] LABS: Basophils % 0.1 %; Eosinophils % 0.1 %; Hematocrit 46.1 % (37.0-47.0); Hemoglobin 14.3 g/dL (11.5-15.3); Lymphocytes # 0.7 10^3/uL (0.8-4.8); Lymphocytes % 9.4 %; Mean Corpuscular Hemoglobin 24.2 pg (28.0-34.0); Mean Corpuscular Volume 78.1 fl (81-99); Mean Platelet Volume 10.7 fL (7.4-10.4); Monocytes # 0.4 10^3/uL (0.2-0.9); Monocytes % 5.7 %; Neutrophils # 6.01 10^3/uL (1.8-7.7); Nucleated Red Blood Cells % 0 %; Platelet Count 314 10^3/cmm (130-400); Red Cell Distribution Width 17.4 % (12.1-15.1); White Blood Count 7.2 10^3/uL (4.0-10.0)
[2021-10-02] MEDS: budesonide 0.5 mg/2 mL Neb INHALATION ×2 (08:34→20:10)
--- NOTE | 2021-10-02 08:40 | PC.RESP ---
RT Shift Note Frequent safety and respiratory rounds continue. Orders completed as indicated. Patient monitored pre and post treatments throughout shift. Patient [Did.] tolerate treatments appropriately. Condition [.DidNotChange]. Patient and/or senior outside sales representative educated on respiratory treatment and medications. Patient and/or senior outside sales representative [verbalized understanding]. Will continue to monitor patient progress.
[2021-10-02] MEDS: zinc gluconate 50 mg Tablet PO (08:56)
[2021-10-02] MEDS: benzonatate 100 mg Capsule 200 MG PO ×3 (08:56→20:59)
[2021-10-02] MEDS: lamoTRIgine 100 mg Tablet PO ×2 (08:56→20:59)
[2021-10-02] MEDS: dexamethasone 10 mg/mL INJ 6 MG IVP (08:56)
[2021-10-02] MEDS: pantoprazole DR 40 mg Tablet PO (08:56)
[2021-10-02] MEDS: ferrous gluconate 324 mg Tablet PO ×2 (08:56→17:26)
[2021-10-02] MEDS: ascorbic acid 500 mg Tablet PO ×2 (08:56→17:26)
[2021-10-02] MEDS: buPROPion SR (12 HR) 100 mg Tablet 200 MG PO (09:01)
[2021-10-02] MEDS: apixaban 5 mg Tablet PO ×2 (09:01→20:59)
[2021-10-02] MEDS: potassium chloride ER 20 mEq Tablet 40 MEQ PO ×2 (13:20→15:05)
[2021-10-02] MEDS: acetaminophen 325 mg Tablet 650 MG PO (13:50)
--- NOTE | 2021-10-02 14:48 | PM.PN ---
Subjective Subjective: Interval history: No events overnight. Patient doing better. Down to 6 L high flow nasal cannula saturating 96 to 97%. Laying in left lateral semiprone position during examination. Asking a Raman catheter to be removed. Asking when can she go home. Denies any nausea, vomiting, headache. Appetite improving. Working well with I-S and Acapella. As per the RN patient did not tolerate except BiPAP last night. Vitals/I&O/Wt Last Vital Signs Temp 97.4 F L 10/02/21 12:00 Pulse 73 10/02/21 12:00 Resp 20 H 10/02/21 12:00 BP 139/65 10/02/21 12:00 Pulse Ox 92 10/02/21 12:00 10/01/21 10/02/21 10/02/21 22:59 06:59 14:59 Intake Total 320 / 560 50 / 610 240 / 240 Output Total 1700 / 1700 300 / 2000 Balance -1380 / -1140 -250 / -1390 240 / 240 Weight last 48 hrs Weight 170.551 kg Physical Exam Narrative: EXAM NARRATIVE: General: No acute distress, AO x3, morbid obesity, cushingoid body habitus, on high flow nasal canula HEENT: PERRLA,: Pupils bilaterally equal and reactive Chest: Bilateral bronchial breath sounds, occasional rhonchi present over the lung bedoya, decreased air entry all over the lung bedoya most likely from body habitus CVS: S1-S2 regular, no murmurs, no tachycardia, no gallops, no rubs Abdomen: Soft, nontender, no organomegaly, bowel sounds present Neuro: No focal deficits, no facial deformity, AO x3, power 5/5 in all limbs Urinary Catheter Management: Raman: Cath Placed During This Visit: yes Reason for Continuing Indwelling Catheter: Acute Urinary Retention or Obstruction Urinary Catheter Date of Insertion: 09/30/21 Urinary Catheter Time of Insertion: 17:52 Data : 10/02/21 04:40 10/02/21 04:40 Micro: Microbiology 09/30/21 18:10 Stool Lactoferrin - Final Stool - Stool Aspirate Enteric Pathogens (PCR) - Final Parasite Antigen Panel - Final 09/30/21 18:10 C.difficile Toxin B Gene (PCR) - Final Stool - Stool Aspirate 09/30/21 18:10 Legionella Urinary Antigen - Final Urine Catheterized 09/30/21 18:10 Bacterial Antigens - Final Urine Kidney A&P Assessment and plan (1) Pneumonia due to COVID-19 virus: Status: Acute (2) Morbid obesity: Status: Acute (3) Obstructive sleep apnea: Status: Acute (4) Hyponatremia: Status: Acute (5) Respiratory failure with hypoxia: Status: Acute Plan Hypoxia secondary to COVID-19 pneumonia: Moderate to severe disease. Improving. Oxygen supplementation keeping saturation over 88%. Dexamethasone 6 mg daily. Remdesivir to finish a 5-day course. Vitamin C, zinc. DuoNebs every 4 hour, budesonide twice daily Pulmonary toilet with incentive spirometry flutter valve. We will monitor inflammatory markers including CRP, D-dimer every 48 hours.? Post 1 dose of Actemra on admission on September 29 D-dimer elevated.? CT negative pulmonary embolism. For now continue with Eliquis 5 mg twice daily. Will monitor for anemia or blood loss. Most likely will need full dose anticoagulation for at least 2 weeks post discharge. Procalcitonin negative, check sputum culture, urine Legionella, bacterial antigen, urinalysis.? For now low suspicion of superimposed bacterial infection.? Continue with azithromycin orally to finish a 5-day course. Last dose on 10/04. Given hypoxia will try to keep patient as negative as possible. Raman catheterization.? Net 1400 -. Hold off on Lasix for today. Replace potassium Strict input output charting, daily weights. Echocardiogram done shows an EF of 63% with poor echo window. Obstructive sleep apnea: Diagnosed.? Noncompliant to BiPAP at home.? If needed will do BiPAP nightly. Patient is agreeable. Continue other chronic home medications related to intellectual disability. Hyponatremia: Resolved. Full code. Regular diet. Famotidine for PUD prophylaxis. Eliquis will help with DVT prophylaxis. Discharge planning: If continues to do well with oxygen supplementation less than 4 L can plan to discharge once finishes remdesivir course back home with oxygen supplementation Plan for day: Remdesivir, incentive spirometer and flutter valve. Semiprone to sitting position. DC Raman. Replace potassium. Attestations Medical Necessity Statement*: Requires further hospitalization for management of hypoxia secondary COVID-19 pneumonia while patient oxygen supplementation is weaned down and she continues on IV remdesivir course. 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
--- NOTE | 2021-10-02 16:44 | PC.NURSE ---
Raman Catheter removed intact at this time.
[2021-10-02] MEDS: remdesivir 100 MG in sodium chloride 0.9% (100 ml) 80 ML IV (17:26)
[2021-10-02] MEDS: azithromycin 250 mg Tablet 500 MG PO (20:58)
[2021-10-02] MEDS: cefTRIAXone 1,000 MG in sodium chloride 0.9% (plus) 50 ML 100 MG IV (22:13)
[2021-10-02] MEDS: zolpidem 5 mg Tablet PO (22:14)
[2021-10-03] VITALS (11 sets, daily range): BP systolic 124–169; BP diastolic 63–79; PULSE 71–89; RESP 16–20; TEMP 36.4–37.2; O2SAT 94–98
[2021-10-03] MEDS: acetaminophen 325 mg Tablet 650 MG PO ×4 (02:59→20:23)
[2021-10-03] MEDS: ipratropium-albuterol 3 mL Neb INHALATION ×4 (03:41→21:28)
--- NOTE | 2021-10-03 06:00 | XR_ITS ---
WS: [id number] CHEST XRAY TECHNIQUE: Portable chest. CLINICAL INFORMATION: covid COMPARISON: September 11, 2021 FINDINGS: Heart: Cardiomegaly. Lungs: Patchy bilateral pulmonary infiltrates left greater than right improved since October 01, 2021 . Infiltrates most prominent in the left midlung and left lower lobe. Bones: Normal visualized bony structures. XR/XR chest 1V portable [id number] IMPRESSION: Patchy bilateral pulmonary infiltrates have improved compared to October 01 with residual patchy infiltrate in the left midlung left lower lobe.
[2021-10-03 06:18] LABS: D Dimer 0.82 ug/mIFEU (0-0.59)
[2021-10-03 06:22] LABS: Erythrocyte Sedimentation Rate 7 mm/hr (0-15)
[2021-10-03 06:36] LABS: C Reactive Protein 15.4 mg/L (0.0-4.9)
[2021-10-03] MEDS: ascorbic acid 500 mg Tablet PO ×2 (08:10→18:01)
[2021-10-03] MEDS: dexamethasone 10 mg/mL INJ 6 MG IVP (08:10)
[2021-10-03] MEDS: ferrous gluconate 324 mg Tablet PO ×2 (08:10→18:01)
[2021-10-03] MEDS: lamoTRIgine 100 mg Tablet PO ×2 (08:10→20:20)
[2021-10-03] MEDS: benzonatate 100 mg Capsule 200 MG PO ×3 (08:10→20:19)
[2021-10-03] MEDS: pantoprazole DR 40 mg Tablet PO (08:10)
[2021-10-03] MEDS: zinc gluconate 50 mg Tablet PO (08:10)
[2021-10-03] MEDS: apixaban 5 mg Tablet PO ×2 (08:14→20:20)
[2021-10-03] MEDS: buPROPion SR (12 HR) 100 mg Tablet 200 MG PO (08:14)
[2021-10-03] MEDS: budesonide 0.5 mg/2 mL Neb INHALATION ×2 (08:27→21:28)
[2021-10-03] MEDS: potassium chloride ER 20 mEq Tablet 40 MEQ PO (10:02)
[2021-10-03] MEDS: FUROsemide 10 mg/mL SDV 4mL 40 MG IVP (10:17)
[2021-10-03 10:58] LABS: Alanine Aminotransferase 37 U/L (0-33); Albumin Level 3.5 g/dL (3.5-5.2); Alkaline Phosphatase 55 IU/L (35-105); Anion Gap 16.2 (5-19); Aspartate Amino Transferase 35 U/L (0-32); Blood Urea Nitrogen 11 mg/dL (6-20); Calcium 7.9 mg/dL (8.5-10.5); Carbon Dioxide 27 mmol/L (22-29); Chloride 96 mmol/L (98-107); Glomerular Filtration Rate 88.6 mL/min (90-130); Glucose 90 mg/dL (65-115); Osmolality Calculated 281 mOsm/kg (285-295); Potassium 3.2 mmol/L (3.5-5.1); Sodium 136 mmol/L (136-145); Total Bilirubin 0.3 mg/dL (0.15-1.2); Total Protein 5.5 g/dL (6.6-8.7)
--- NOTE | 2021-10-03 12:37 | PM.PN ---
Subjective Subjective: Interval history: No acute events overnight. Patient lying comfortably in bed. States he is doing better. Wants to go home. Discussed that she needs remdesivir course for 1 more day. Currently on 3 L saturating 94%. Patient is agreeable to stay. Appetite appropriate. Denies any nausea, vomiting, headache. Have requested pharmacy to read time remdesivir dose so can be given by noon tomorrow before discharge if oxygen supplementation remains less than 4 L. Vitals/I&O/Wt Last Vital Signs Temp 98.9 F 10/03/21 08:00 Pulse 77 10/03/21 12:25 Resp 16 10/03/21 12:21 BP 141/76 10/03/21 08:00 Pulse Ox 94 10/03/21 12:21 10/02/21 10/03/21 10/03/21 22:59 06:59 14:59 Intake Total 320 / 560 50 / 610 200 / 200 Balance 320 / 560 50 / 610 200 / 200 Physical Exam Narrative: EXAM NARRATIVE: General: No acute distress, AO x3, morbid obesity, cushingoid body habitus, on high flow nasal canula HEENT: PERRLA,: Pupils bilaterally equal and reactive Chest: Bilateral bronchial breath sounds, occasional rhonchi present over the lung bedoya, decreased air entry all over the lung bedoya most likely from body habitus CVS: S1-S2 regular, no murmurs, no tachycardia, no gallops, no rubs Abdomen: Soft, nontender, no organomegaly, bowel sounds present Neuro: No focal deficits, no facial deformity, AO x3, power 5/5 in all limbs Urinary Catheter Management: Raman: Cath Placed During This Visit: yes, but has since been removed by the nurse Reason for Continuing Indwelling Catheter: Decision to DC Catheter Urinary Catheter Date of Insertion: 09/30/21 Urinary Catheter Time of Insertion: 17:52 Date Urinary Catheter Removed: 10/02/21 Time Urinary Catheter Discontinued: 18:00 Data : 10/02/21 04:40 10/03/21 05:30 Micro: Microbiology 09/30/21 11:40 MRSA Culture - Final Nose A&P Assessment and plan (1) Pneumonia due to COVID-19 virus: Status: Acute (2) Morbid obesity: Status: Acute (3) Obstructive sleep apnea: Status: Acute (4) Hyponatremia: Status: Acute (5) Respiratory failure with hypoxia: Status: Acute Plan Hypoxia secondary to COVID-19 pneumonia: Moderate to severe disease. Improving. Down to 3 L nasal cannula. Oxygen supplementation keeping saturation over 88%. Dexamethasone 6 mg daily. Remdesivir to finish a 5-day course. Last dose 10/04 Vitamin C, zinc. DuoNebs every 4 hour, budesonide twice daily Pulmonary toilet with incentive spirometry flutter valve. We will monitor inflammatory markers including CRP, D-dimer every 48 hours.? Post 1 dose of Actemra on admission on September 29 D-dimer elevated.? CT negative pulmonary embolism. For now continue with Eliquis 5 mg twice daily. Will monitor for anemia or blood loss. Most likely will need full dose anticoagulation for at least 2 weeks post discharge. Procalcitonin negative, check sputum culture, urine Legionella, bacterial antigen, urinalysis.? For now low suspicion of superimposed bacterial infection.? Continue with azithromycin orally to finish a 5-day course. Last dose on 10/04. Given hypoxia will try to keep patient as negative as possible. Raman catheterization.? Dose of Lasix today. Replete potassium. Strict input output charting, daily weights. Echocardiogram done shows an EF of 63% with poor echo window. Obstructive sleep apnea: Diagnosed.? Noncompliant to BiPAP at home.? If needed will do BiPAP nightly. Patient is agreeable. Continue other chronic home medications related to intellectual disability. Hyponatremia: Resolved. Full code. Regular diet. Famotidine for PUD prophylaxis. Eliquis will help with DVT prophylaxis. Discharge planning: If continues to do well with oxygen supplementation less than 4 L can plan to discharge once finishes remdesivir course back home with oxygen supplementation Plan for day: Continue remdesivir, aggressive pulmonary toilet. Semiprone position when in bed. Wean down oxygen keeping saturation over 88%. Repeat dose of Lasix. Attestations Medical Necessity Statement*: Requires further hospitalization for hypoxia secondary COVID-19 pneumonia while she finishes remdesivir course Time Spent in Patient Care: Greater than 35 minutes Coding Level of Care Code Acute Administrative Fellow for [facility] Fwd Diagnoses Pneumonia due to COVID-19 virus U07.1; J12.82 Morbid obesity E66.01 Obstructive sleep apnea G47.33 Hyponatremia E87.1 Respiratory failure with hypoxia J96.91
[2021-10-03] MEDS: remdesivir 100 MG in sodium chloride 0.9% (100 ml) 80 ML IV (15:34)
[2021-10-03] MEDS: cetylpyridinium Lozenge 1 EACH MUCOUS MEM (15:57)
--- NOTE | 2021-10-03 18:32 | PC.NURSE ---
Patients IV has infiltrated since the last dose of remdesivir. Patient does not wanting another IV at this time. Patient states, Can't we just wait until in the morning. Explained to patient that she has an antibiotic later tonight and patient states, Can't we wait until then. Explained to patient that there are more nurses here now that could try instead of later. Patient states, I don't want to be stuck right now. My arm hurts to much from this old one. Dr. Briot notified. He states that she needs one.
--- NOTE | 2021-10-03 18:53 | PC.NURSE ---
Pateint's left arm is red around the IV site. Ice given.
[2021-10-03] MEDS: azithromycin 250 mg Tablet 500 MG PO (20:23)
[2021-10-03] MEDS: cefTRIAXone 1,000 MG, lidocaine 1% 2.1 ML in SYRINGE 1 EACH 2.1 MG IM (22:40)
[2021-10-03] MEDS: zolpidem 5 mg Tablet PO (22:44)
[2021-10-04] VITALS (8 sets, daily range): BP systolic 134–159; BP diastolic 69–79; PULSE 86–105; RESP 16–91; TEMP 36.6; O2SAT 90–96
[2021-10-04] MEDS: acetaminophen 325 mg Tablet 650 MG PO (02:14)
[2021-10-04] MEDS: hyDROXYzine 25 mg Capsule PO (02:14)
[2021-10-04 07:20] LABS: Basophils % 0.1 %; Eosinophils % 0.1 %; Hematocrit 45.6 % (37.0-47.0); Hemoglobin 14.2 g/dL (11.5-15.3); Lymphocytes # 0.9 10^3/uL (0.8-4.8); Lymphocytes % 5.4 %; Mean Corpuscular HGB Conc 31.1 g/dL (30.0-36.0); Mean Corpuscular Hemoglobin 24.8 pg (28.0-34.0); Mean Corpuscular Volume 79.6 fl (81-99); Mean Platelet Volume 10.1 fL (7.4-10.4); Monocytes # 0.4 10^3/uL (0.2-0.9); Monocytes % 2.5 %; Neutrophils # 14.87 10^3/uL (1.8-7.7); Neutrophils % 91.2 %; Nucleated Red Blood Cells % 0 %; Platelet Count 315 10^3/cmm (130-400); Red Blood Count 5.73 10^6/uL (4.1-5.3); Red Cell Distribution Width 18.4 % (12.1-15.1); White Blood Count 16.3 10^3/uL (4.0-10.0)
[2021-10-04 07:40] LABS: Alanine Aminotransferase 51 U/L (0-33); Albumin Level 3.7 g/dL (3.5-5.2); Alkaline Phosphatase 69 IU/L (35-105); Anion Gap 15.3 (5-19); Aspartate Amino Transferase 43 U/L (0-32); Blood Urea Nitrogen 13 mg/dL (6-20); Calcium 8.1 mg/dL (8.5-10.5); Carbon Dioxide 29 mmol/L (22-29); Chloride 96 mmol/L (98-107); Globulin 2.3 g/dL (1.3-4.6); Glomerular Filtration Rate 75.9 mL/min (90-130); Glucose 87 mg/dL (65-115); Osmolality Calculated 283 mOsm/kg (285-295); Potassium 3.3 mmol/L (3.5-5.1); Sodium 137 mmol/L (136-145); Total Bilirubin 0.5 mg/dL (0.15-1.2)
[2021-10-04] MEDS: benzonatate 100 mg Capsule 200 MG PO ×2 (08:54→13:50)
[2021-10-04] MEDS: ascorbic acid 500 mg Tablet PO (08:54)
[2021-10-04] MEDS: zinc gluconate 50 mg Tablet PO (08:55)
[2021-10-04] MEDS: buPROPion SR (12 HR) 100 mg Tablet 200 MG PO (08:55)
[2021-10-04] MEDS: dexamethasone 10 mg/mL INJ 6 MG IVP (08:55)
[2021-10-04] MEDS: ferrous gluconate 324 mg Tablet PO (08:55)
[2021-10-04] MEDS: pantoprazole DR 40 mg Tablet PO (08:55)
[2021-10-04] MEDS: lamoTRIgine 100 mg Tablet PO (08:57)
[2021-10-04] MEDS: apixaban 5 mg Tablet PO (08:57)
[2021-10-04] MEDS: remdesivir 100 MG in sodium chloride 0.9% (100 ml) 80 ML IV (11:15)
--- NOTE | 2021-10-04 11:34 | P.DS_ITS ---
Discharge Providers Date of Admission: 09/30/21 03:14 Date of Discharge: October 04, 2021 Attending Provider at Admission: Grady Vigil MD Attending Provider at Discharge: Luis Daniel Brito MD Primary Care Provider: JOSE A Thacker Diagnoses at Discharge Discharge Diagnosis (1) Pneumonia due to COVID-19 virus: Status: Acute (2) Morbid obesity: Status: Acute (3) Obstructive sleep apnea: Status: Acute (4) Hyponatremia: Status: Acute (5) Respiratory failure with hypoxia: Status: Acute Reason for Visit Reason for Visit: SOB Hospital Course Hospital Course History as per H&P: Lisa Pretty is a 51 year old female with past medical history of morbid obesity, obstructive sleep apnea not on CPAP, PTSD came in with chief complaint of worsening shortness of breath going on for the last 3 to 4 days, accompanied by nonproductive cough, she is also complaining of diarrhea 4-5 episodes daily for the last 3 to 4 days. Patient is vaccinated for COVID-19 but without booster. Hospital course: Patient was started on treatment for COVID-19 pneumonia with IV remdesivir, dexamethasone, relation treatment along with aggressive pulmonary toilet. She was also given 1 dose of Actemra. She responded well to the treatment and has been on room air for last 12 h. Home O2 evaluation has been done prior to discharge. She has been discharged in hemodynamically stable condition with following advices Advised to take inhalation treatment with Advair and Spiriva daily. Advised to continue using Eliquis which is a blood thinner for next 2 weeks. Advised to continue working with incentive spirometry and flutter valve while at home. Advised to continue taking dexamethasone 6 mg for next 7 days. Advised to follow-up with his primary care provider within the next 4 to 7 days. Can take his COVID-19 booster in next 2 weeks. Advised to continue following social distancing and isolation protocol for next 10 days. Advised to come back to the ER if fever of more than 101 Fahrenheit, more difficulty breathing than usual or requiring higher oxygen supplementation. Physical Exam Narrative: EXAM NARRATIVE: General: No acute distress, AO x3, morbid obesity, cushingoid body habitus, on high flow nasal canula HEENT: PERRLA,: Pupils bilaterally equal and reactive Chest: Bilateral bronchial breath sounds, occasional rhonchi present over the lung bedoya, decreased air entry all over the lung bedoya most likely from body habitus CVS: S1-S2 regular, no murmurs, no tachycardia, no gallops, no rubs Abdomen: Soft, nontender, no organomegaly, bowel sounds present Neuro: No focal deficits, no facial deformity, AO x3, power 5/5 in all limbs Urinary Catheter Management: Raman: Cath Placed During This Visit: yes, but has since been removed by the nurse Reason for Continuing Indwelling Catheter: Decision to DC Catheter Urinary Catheter Date of Insertion: 09/30/21 Urinary Catheter Time of Insertion: 17:52 Date Urinary Catheter Removed: 10/02/21 Time Urinary Catheter Discontinued: 18:00 Discharge Data Studies Completed and Pending Completed Studies During Hospitalization Category Date Time Status CT angio chest PE protcl [id number] Routine Cat Scan 09/30/21 14:12 Completed XR chest 1V portable [id number] Q48H Exams 10/01/21 06:00 Completed XR chest 1V portable [id number] Q48H Exams 10/03/21 06:00 Completed XR chest 1V portable [id number] Urgent Exams 09/29/21 20:24 Completed CV. echo wo/w contrast [id number] Routine Ultrasound 10/01/21 14:13 Completed Pending at discharge Category Date Time Status XR chest 1V portable [id number] Q48H Exams 10/05/21 06:00 Ordered Blood Culture Stat Lab 09/29/21 20:45 Results Sputum Culture and Gram Stain Stat Lab 09/30/21 15:23 Uncollected Radiology Impressions Chest CTA 09/30/21 14:12 IMPRESSION: 1. No evidence of proximal pulmonary embolus. Subsegmental and distal pulmonary arteries not well evaluated. 2. Diffuse bilateral groundglass pulmonary infiltrates compatible with Covid 19 pneumonia appears stable since radiograph September 29, 2021. This is more prominent in the perihilar regions and upper lobes bilaterally. 3. Normal caliber thoracic aorta. 4. Cardiomegaly. Chest X-Ray 10/03/21 06:00 IMPRESSION: Patchy bilateral pulmonary infiltrates have improved compared to October 01, 2021 with residual patchy infiltrate in the left midlung left lower lobe. Laboratory Results WBC 16.3 10^3/uL (4.0-10.0) H 10/04/21 06:42 RBC 5.73 10^6/uL (4.1-5.3) H 10/04/21 06:42 Hgb 14.2 g/dL (11.5-15.3) 10/04/21 06:42 Hct 45.6 % (37.0-47.0) 10/04/21 06:42 MCV 79.6 fl (81-99) L 10/04/21 06:42 MCH 24.8 pg (28.0-34.0) L 10/04/21 06:42 MCHC 31.1 g/dL (30.0-36.0) 10/04/21 06:42 RDW 18.4 % (12.1-15.1) H 10/04/21 06:42 Plt Count 315 10^3/cmm (130-400) 10/04/21 06:42 MPV 10.1 fL (7.4-10.4) 10/04/21 06:42 Neut % (Auto) 91.2 % 10/04/21 06:42 Lymph % (Auto) 5.4 % 10/04/21 06:42 [place] % (Auto) 2.5 % 10/04/21 06:42 Eos % (Auto) 0.1 % 10/04/21 06:42 Baso % (Auto) 0.1 % 10/04/21 06:42 Neut # (Auto) 14.87 10^3/uL (1.8-7.7) H 10/04/21 06:42 Lymph # (Auto) 0.9 10^3/uL (0.8-4.8) 10/04/21 06:42 [place] # (Auto) 0.4 10^3/uL (0.2-0.9) 10/04/21 06:42 Eos # (Auto) 0.0 10^3/uL (0.0-0.8) 10/04/21 06:42 Baso # (Auto) 0.0 10^3/uL (0.0-0.1) 10/04/21 06:42 Nucleated RBC % (auto) 0 % 10/04/21 06:42 Nucleated RBCs # 0.0 /100WBC 10/04/21 06:42 ESR 7 mm/hr (0-15) 10/03/21 05:30 D-Dimer 0.82 ug/mIFEU (0-0.59) H 10/03/21 05:30 Specimen Type Arterial 09/29/21 22:03 Sample Site Radial, left 09/29/21 22:03 ABG pH 7.44 (7.35-7.45) 09/29/21 22:03 ABG pCO2 44.0 mmHg (35-45) 09/29/21 22:03 ABG pO2 64.6 mmHg (80.0-100.0) L 09/29/21 22:03 ABG HCO3 29.9 mmol/L (22-26) H 09/29/21 22:03 ABG Base Excess 5.0 mmol/L (-2.0-2.0) H 09/29/21 22:03 Gelacio Test Pos 09/29/21 22:03 Hematocrit 42.2 % (37-47) 09/29/21 22:03 Hgb O2 Saturation 91.9 % (95-100) L 09/29/21 22:03 Carboxyhemoglobin 0.7 %THgb (0.4-20.1) 09/29/21 22:03 Methemoglobin 0.5 % (0.4-1.5) 09/29/21 22:03 Total Hemoglobin 13.8 g/dL (12-16) 09/29/21 22:03 O2 Delivery Device Nc 09/29/21 22:03 O2 Liters/Min 5.0 % 09/29/21 22:03 Advanced Manufacturing Engineer ID Buttr 09/29/21 22:03 Sodium 137 mmol/L (136-145) 10/04/21 06:42 Potassium 3.3 mmol/L (3.5-5.1) L 10/04/21 06:42 Chloride 96 mmol/L (98-107) L 10/04/21 06:42 Carbon Dioxide 29 mmol/L (22-29) 10/04/21 06:42 Anion Gap 15.3 (5-19) 10/04/21 06:42 BUN 13 mg/dL (6-20) 10/04/21 06:42 Creatinine 0.8 mg/dL (0.5-0.9) 10/04/21 06:42 GFR Calculation 75.9 mL/min (90-130) L 10/04/21 06:42 Glucose 87 mg/dL (65-115) 10/04/21 06:42 Estimat Average Glucose 120 10/01/21 06:03 Hemoglobin A1c 5.8 % (4.0-6.0) 10/01/21 06:03 Calculated Osmolality 283 mOsm/kg (285-295) L 10/04/21 06:42 Lactic Acid 1.0 mmol/L (0.5-2.2) 09/29/21 20:42 Calcium 8.1 mg/dL (8.5-10.5) L 10/04/21 06:42 Iron 13 ug/dL (37-145) L 09/30/21 02:17 TIBC 236 mcg/dl 09/30/21 02:17 % Saturation 5.5 % (20-50) L 09/30/21 02:17 Unsat Iron Binding 223 ug/dL (112-347) 09/30/21 02:17 Total Bilirubin 0.5 mg/dL (0.15-1.2) 10/04/21 06:42 AST 43 U/L (0-32) H 10/04/21 06:42 ALT 51 U/L (0-33) H 10/04/21 06:42 Alkaline Phosphatase 69 IU/L (35-105) 10/04/21 06:42 Creatine Kinase 699 U/L (26-192) H* 09/30/21 02:17 Troponin T Baseline 14 ng/L (0-10) H 09/29/21 19:50 Troponin T 120 Minute 13.09 ng/L (0-10) H 09/29/21 22:10 Delta Troponin T -0.91 ABS# (0-10) L 09/29/21 22:10 Troponin T Hi Sens 6Hr 9.57 ng/L (0-10) 09/30/21 02:17 Troponin T Hi Sens 6Hr Delta -4.43 ng/L (0-12) L 09/30/21 02:17 C-Reactive Protein 15.4 mg/L (0.0-4.9) H 10/03/21 05:30 NT-Pro-B Natriuret Pep 312 pg/mL (0-125) H 09/30/21 02:17 Total Protein 6.0 g/dL (6.6-8.7) L 10/04/21 06:42 Albumin 3.7 g/dL (3.5-5.2) 10/04/21 06:42 Globulin 2.3 g/dL (1.3-4.6) 10/04/21 06:42 Triglycerides 152 mg/dL (0-150) H 10/01/21 06:03 Cholesterol 126 mg/dL (0-200) 10/01/21 06:03 LDL Cholesterol, Calc 75 mg/dL (50-129) 10/01/21 06:03 Total VLDL Cholesterol 30 mg/dL (0-30) 10/01/21 06:03 HDL Cholesterol 21 mg/dL (60-100) L 10/01/21 06:03 Cholesterol/HDL Ratio 6.00 mg/dL (0.0-4.40) H 10/01/21 06:03 Vitamin B12 611 pg/mL (232-1245) 09/30/21 02:17 Folate 13.9 ng/mL (4.8-37.3) 09/30/21 19:05 Procalcitonin 0.17 ng/mL (0-0.5) 09/30/21 02:17 TSH 0.50 uIU/mL (0.27-4.20) 09/30/21 02:17 Urine Color Yellow (Yellow) 09/30/21 18:10 Urine Appearance Clear (CLEAR) 09/30/21 18:10 Urine pH 6.5 (5-7) 09/30/21 18:10 Ur Specific [place] 1.005 (1.005-1.030) 09/30/21 18:10 Urine Protein Neg (Negative) 09/30/21 18:10 Urine Glucose (UA) Norm (Normal) 09/30/21 18:10 Urine Ketones 1+ (Negative) H 09/30/21 18:10 Urine Blood 2+ (Negative) H 09/30/21 18:10 Urine Nitrate Negative (Negative) 09/30/21 18:10 Urine Bilirubin Neg (Negative) 09/30/21 18:10 Urine Urobilinogen Norm mg/dL (Negative) 09/30/21 18:10 Ur Leukocyte Esterase Negative (Negative) 09/30/21 18:10 Urine RBC 0-4 /hpf (0-2) H 09/30/21 18:10 Urine WBC 0-4 /hpf (0-5) H 09/30/21 18:10 Ur Squamous Epith Cells None /hpf (0-5) 09/30/21 18:10 Amorphous Sediment Not Reportable 09/30/21 18:10 Urine Bacteria Trace /hpf (NONE) 09/30/21 18:10 Ur Random Sodium 22 mmol/L 09/30/21 18:10 Ur Random Potassium 13 mmol/L 09/30/21 18:10 Ur Random Chloride 28 mmol/L 09/30/21 18:10 Coronavirus 229E (PCR) Not detected (NOT DETECT) 09/29/21 21:00 SARS-CoV-2 (PCR) Detected (NOT DETECT) A 09/29/21 21:00 Vitals Last Vital Signs Temp 97.9 F 10/04/21 07:31 Pulse 105 H 10/04/21 08:32 Resp 18 10/04/21 08:32 BP 135/76 10/04/21 07:31 Pulse Ox 92 10/04/21 10:47 Discharge Plan Discharge Patient Disposition: Home Condition: Stable Prescriptions: New azithromycin 250 mg Tablet 500 mg PO Q24H 3 Days Qty: 6 0RF Vitamin C 500 mg Tablet 500 mg PO BID 14 Days Qty: 28 0RF benzonatate 100 mg Capsule 200 mg PO TID PRN (Reason: cough) Qty: 10 0RF zinc gluconate 50 mg Tablet 50 mg PO DAILY Qty: 14 0RF ferrous gluconate 324 mg (37.5 mg iron) Tablet 324 mg PO BIDWM 30 Days Qty: 60 0RF Eliquis 5 mg Tablet 5 mg PO BID@0900,2100 14 Days Qty: 28 0RF dexamethasone 6 mg tablet 6 mg PO DAILY Qty: 7 0RF Advair Diskus 250-50 mcg/dose blister with device 1 inh inhalation BID Qty: 30 0RF Spiriva with HandiHaler 18 mcg capsule, w/inhalation device 1 cap inhalation DAILY Qty: 14 0RF Rx Instructions: puncture 1 cap using device; one dose = 2 inhalations Continued potassium chloride 10 mEq tablet,ER particles/crystals 20 meq PO DAILY 0RF furosemide 20 mg tablet 40 mg PO QAM 0RF bupropion HCl [Wellbutrin SR] 200 mg tablet sustained-release 12 hr 200 mg PO .morning Qty: 90 2RF Rx Instructions: Take one tablet every morning hydroxyzine HCl 50 mg tablet 50 mg PO BID PRN (Reason: anxiety) Qty: 60 3RF zolpidem [Ambien] 5 mg tablet 5 mg PO .bedtime Qty: 30 3RF Rx Instructions: Take one tablet at bedtime hydrocodone-acetaminophen 5-325 mg tablet 1 tab PO QID PRN (Reason: Pain) 0RF omeprazole 20 mg capsule,delayed release(DR/EC) 20 mg PO BEDTIME 0RF albuterol sulfate 90 mcg/actuation HFA aerosol inhaler 2 puff INHALATION QID PRN (Reason: Shortness Of Breath) 0RF lamotrigine 100 mg tablet 100 mg PO BID 0RF Discharge Orders: Discharge Order (Routine); Ordered 10/04/21 Ordered By: Luis Daniel Brito Referrals: Jovana Coronado FNP [Primary Care Provider] - 7-10 days Discharge Diet: Usual diet Discharge Activity: Resume usual activity and Increase activity as tolerated Patient Instructions: Opioid Safety Activity Restrictions/Additional Instructions: Advised to take inhalation treatment with Advair and Spiriva daily. Advised to continue using Eliquis which is a blood thinner for next 2 weeks. Advised to continue working with incentive spirometry and flutter valve while at home. Advised to continue taking dexamethasone 6 mg for next 7 days. Advised to follow-up with his primary care provider within the next 4 to 7 days. Can take his COVID-19 booster in next 2 weeks. Advised to continue following social distancing and isolation protocol for next 10 days. Advised to come back to the ER if fever of more than 101 Fahrenheit, more diffic ulty breathing than usual or requiring higher oxygen supplementation. Discharge Attestations Time Spent in Discharge Care*: greater than 30 min Specific Discharge Activities: educating patient, discussing with case management associate/social workers/dc planners, documenting/other paperwork and evaluating patient/reviewing data Status at Discharge: Cognitive status at discharge: mildly impaired cognition , Behavioral status at discharge: cooperative , Functional status at discharge: wheelchair bound , Overall status at discharge: patient is back to baseline Quality Metrics Clinical Quality Measures [ No reported AMI, CVA or VTE this stay] Coding Level of Care Code Acute [facility] DC note Diagnoses Pneumonia due to COVID-19 virus U07.1; J12.82 Morbid obesity E66.01 Obstructive sleep apnea G47.33 Hyponatremia E87.1 Respiratory failure with hypoxia J96.91
== END 2021-10-04 14:25 | disposition home or self-care (01) | DRG 177 ==
LOC: ER 09-30 02:20 → ER IP 09-30 03:15 → MEDSURG 09-30 15:38
PROVIDERS: Admitting Provider Internal Medicine; Emergency Provider Emergency Medicine; PCP Nurse Practitioner Family; Visit Provider Student in an Organized Health Care Education/Training Program
DX: U07.1 COVID-19 (principal); J12.82 Pneumonia due to coronavirus disease 2019; J96.91 Respiratory failure, unspecified with hypoxia; E87.1 Hypo-osmolality and hyponatremia; Z68.45 Body mass index [BMI] 70 or greater, adult; E66.01 Morbid (severe) obesity due to excess calories; G47.33 Obstructive sleep apnea (adult) (pediatric); R79.1 Abnormal coagulation profile; Z91.19 Patient's noncompliance with other medical treatment and regimen; Z79.891 Long term (current) use of opiate analgesic
CPT/HCPCS: 36415; 36600; 51702; 71045; 71275; 80053; 80061; 81001; 82436; 82550; 82607; 82746; 82805; 83036; 83540; 83550; 83605; 83630; 83880; 84133; 84145; 84300; 84443; 84484; 85025; 85378; 85651; 86140; 86403; 87040; 87449; 87493; 87506; 87635; 87641; 93005; 94640; 94664; 96365; 96366; 96367; 96372; 96375; 99291; C8929; J0456; J0696; J1100; J1650; J1940; J3262; J7050; J7626; Q0144; Q9956; Q9967

== ENCOUNTER 2021-10-13 22:16 | Observation (INO) | payer MEDICARE, MEDICAID, SELFPAY ==
[2021-10-13 22:21] VITALS: BP 137/63; PULSE 78; RESP 18; O2SAT 99; BMI 75.3
--- NOTE | 2021-10-13 22:48 | CTR_ITS ---
PROCEDURE INFORMATION: Exam: CT Abdomen And Pelvis With Contrast Exam date and time: 10/13/2021 10:48 PM Age: 51 years old Clinical indication: Condition or disease; Patient HX: Sacral wound w purulent drainage; Additional info: Deep sacral wound TECHNIQUE: Imaging protocol: Computed tomography of the abdomen and pelvis with contrast. Radiation optimization: All CT scans at this facility use at least one of these dose optimization techniques: automated exposure control; mA and/or kV adjustment per patient size (includes targeted exams where dose is matched to clinical indication); or iterative reconstruction. Contrast material: OMNI 300; Contrast volume: 95 ml; Contrast route: INTRAVENOUS (IV); COMPARISON: CT angio chest PE protcl [id number] 09/30/2021 4:17 PM RADIATION DOSE METRICS: Total DLP (mGy-cm): 2338.74 FINDINGS: Liver: Normal. No mass. Gallbladder and bile ducts: Normal. No calcified stones. No ductal dilation. Pancreas: Normal. No ductal dilation. Spleen: Normal. No splenomegaly. Adrenal glands: Normal. No mass. Kidneys and ureters: Normal. No hydronephrosis. Stomach and bowel: Unremarkable. No obstruction. No mucosal thickening. Appendix: No evidence of appendicitis. Intraperitoneal space: No intraperitoneal fluid collection. No free air. Vasculature: Unremarkable. No abdominal aortic aneurysm. Lymph nodes: Unremarkable. No enlarged lymph nodes. Urinary bladder: Unremarkable as visualized. Reproductive: Unremarkable as visualized. Bones/joints: Unremarkable. No acute fracture. Soft tissues: Focal soft tissue wound of inferomedial right gluteal fold. There is soft tissue gas and soft tissue edema. A tract extends deeper into the subcutaneous along the medial aspect of the right perineum with additional fat stranding changes and foci of gas. No loculated drainable abscess seen. There is mild asymmetric thickening of the right puborectalis muscle. CT/CT abdomen pelvis w con* [id number] IMPRESSION: Soft tissue infection is seen in the right gluteal fat extending along the right posterior medial perineum with no definitive extension above pelvic floor identified. Mild asymmetric thickening right puborectalis muscle.
[2021-10-13 23:02] LABS: Basophils % 0.4 %; Eosinophils # 0.1 10^3/uL (0.0-0.8); Hematocrit 41.6 % (37.0-47.0); Hemoglobin 12.5 g/dL (11.5-15.3); Lymphocytes # 1.4 10^3/uL (0.8-4.8); Lymphocytes % 19.8 %; Mean Corpuscular Hemoglobin 24.8 pg (28.0-34.0); Mean Corpuscular Volume 82.4 fl (81-99); Mean Platelet Volume 9.9 fL (7.4-10.4); Monocytes # 1.1 10^3/uL (0.2-0.9); Monocytes % 15.3 %; Neutrophils # 4.43 10^3/uL (1.8-7.7); Neutrophils % 62.2 %; Nucleated Red Blood Cells % 0 %; Platelet Count 260 10^3/cmm (130-400); Red Blood Count 5.05 10^6/uL (4.1-5.3); Red Cell Distribution Width 20.3 % (12.1-15.1); White Blood Count 7.1 10^3/uL (4.0-10.0)
[2021-10-13 23:07] LABS: Erythrocyte Sedimentation Rate 1 mm/hr (0-15)
[2021-10-13] MEDS: sodium chloride 0.9% 1,000 ML 999 ML IV (23:10)
[2021-10-13] MEDS: piperacillin-tazobactam 3.375 GM in sodium chloride 0.9% (plus) 50 ML IV (23:10)
[2021-10-13] MEDS: vancomycin 1,500 MG/300 ML PIGGYBACK 200 MG IV (23:13)
[2021-10-13 23:15] LABS: Alanine Aminotransferase 26 U/L (0-33); Albumin Level 3.2 g/dL (3.5-5.2); Alkaline Phosphatase 82 IU/L (35-105); Aspartate Amino Transferase 19 U/L (0-32); Blood Urea Nitrogen 10 mg/dL (6-20); C Reactive Protein 2.9 mg/L (0.0-4.9); Carbon Dioxide 26 mmol/L (22-29); Chloride 105 mmol/L (98-107); Glomerular Filtration Rate 88.6 mL/min (90-130); Glucose 116 mg/dL (65-115); Osmolality Calculated 298 mOsm/kg (285-295); Sodium 144 mmol/L (136-145); Total Bilirubin 0.3 mg/dL (0.15-1.2); Total Protein 5.2 g/dL (6.6-8.7)
[2021-10-13 23:20] LABS: Procalcitonin 0.09 ng/mL (0-0.5)
--- NOTE | 2021-10-13 23:24 | W.ED.GENADLT ---
HPI - General Adult General: Chief complaint: General Medical Stated complaint: BED SORE Time Seen by Provider: 10/13/21 22:27 Source: patient History of Present Illness: 51-year-old morbidly obese female recently hospitalized with COVID-19. She presents with increasing pain and drainage to her sacral area. She notes the pain started when she was in the hospital, and has slowly worsened since that time. She has a home health aide, who noticed purulent, pungent drainage from the area earlier today evidently. She denies fever or vomiting. Onset (ago): day(s) Location: buttocks Radiation: non-radiation Severity: moderate Quality: stabbing and aching Pain Consistency: constant Relieving factors: none Exacerbating factors: other (Pressure) Associated symptoms: Reports nausea and rash; Deny chest pain, cough, dyspnea, fevers/chills, short of breath or vomiting Review of Systems Const: Denies: fever(s) or chills Card: Denies: chest pain Resp: Denies: dyspnea GI: Reports: nausea; Denies: vomiting Skin/Breast: Reports: rash, skin pain and new lesions PFS ED PFSH: Medical History (Updated 10/14/21 @ 01:03 by Joe Tripp DO) Borderline personality disorder Chronic post-traumatic stress disorder Diarrhea Intellectual functioning disability History of since child lucas Major depressive disorder, recurrent episode, moderate with anxious distress Morbid obesity Obstructive sleep apnea Psychiatric care Sleep apnea Surgical History H/O uvulectomy And soft palate revision. S/P bilateral breast reduction (~1998) S/P colonoscopy (~06/2009) S/P tonsillectomy Family History Mother Diabetes Heart disease Hyperlipidemia Stroke Grandfather Diabetes Paternal Family/Other Diabetes Maternal Aunt Grandmother Heart disease Maternal Other Breast cancer Social History Smoking and tobacco status: never smoked Alcohol intake: never Physical Exam Const: GENERAL APPEARANCE: cooperative and appears older than stated age NUTRITIONAL APPEARANCE: obese ORIENTATION/CONSCIOUSNESS: Yes awake, Yes oriented to person, Yes oriented to place and Yes oriented to time HENMT: COMMON NORMALS: normocephalic, atraumatic and Normal external nose present HEAD & SCALP: normocephalic and atraumatic NOSE: Normal external nose present and Normal nares present Eye: COMMON NORMALS: Equal, round and reactive pupils present and EOMs intact bilaterally PUPIL: Yes Equal, round and reactive pupils present Resp: COMMON NORMALS: normal respiratory effort, No use of accessory muscles and clear to auscultation bilaterally AUSCULTATION: clear to auscultation bilaterally Cardio: COMMON NORMALS: regular rate and regular rhythm RATE: regular rate RHYTHM: regular rhythm GI: COMMON NORMALS: Normal to inspection, nondistended, normoactive bowel sounds present and Soft to palpation PALPATION: Yes Soft to palpation : COMMON NORMALS: Yes no CVA tenderness BLADDER/KIDNEY EXAM: Yes no CVA tenderness Back/Pelvis: COMMON NORMALS: no CVA tenderness SACRUM: other OTHER: Silver dollar size area of opening to the left superior gluteal fold, just left of midline. There is purulent, pungent drainage from the area. There is black eschar surrounding with central necrosis some surrounding erythema no streaking Neuro: SENSORIUM/ORIENTATION: Yes oriented to person, Yes oriented to place and Yes oriented to time Course Consultations: Consultation #1: danita Time: 01:01 Vital Signs: Vital signs: Vital Signs Pulse Rate 82 10/14/21 01:55 Respiratory Rate 16 10/14/21 01:55 Blood Pressure 143/69 10/14/21 01:55 Pulse Oximetry 94 10/14/21 01:55 MDM - General Adult Medical Decision Making 51-year-old female with a sacral decubitus type wound with opening, drainage, and odor. CT reveals fluid and air down to the muscle level. White count is seven. Potassium is three, which is repleted. Inflammatory markers are not overly elevated. She may need debridement. She is on anticoagulation therapy, which complicates this. She has been given IV Vanco and Zosyn in the ER. She will not do well at home given her body habitus, the extent of the infection, etc. She will be admitted for IV antibiotic therapy, and possible debridement if necessary. Lab Data : 10/13/21 22:42 10/13/21 22:42 Radiology Impressions Abdomen/Pelvis CT 10/13/21 22:48 IMPRESSION: Soft tissue infection is seen in the right gluteal fat extending along the right posterior medial perineum with no definitive extension above pelvic floor identified. Mild asymmetric thickening right puborectalis muscle. Laboratory Results WBC 7.1 10^3/uL (4.0-10.0) 10/13/21 22:42 RBC 5.05 10^6/uL (4.1-5.3) 10/13/21 22:42 Hgb 12.5 g/dL (11.5-15.3) 10/13/21 22:42 Hct 41.6 % (37.0-47.0) 10/13/21 22:42 MCV 82.4 fl (81-99) 10/13/21 22:42 MCH 24.8 pg (28.0-34.0) L 10/13/21 22: MCHC 30.0 g/dL (30.0-36.0) 10/13/21 22: RDW 20.3 % (12.1-15.1) H 10/13/21 22:42 Plt Count 260 10^3/cmm (130-400) 10/13/21 22:42 MPV 9.9 fL (7.4-10.4) 10/13/21 22:42 Neut % (Auto) 62.2 % 10/13/21 22:42 Lymph % (Auto) 19.8 % 10/13/21 22:42 [place] % (Auto) 15.3 % 10/13/21 22:42 Eos % (Auto) 2.0 % 10/13/21: Baso % (Auto) 0.4 % 10/13/21:42 Neut # (Auto) 4.43 10^3/uL (1.8-7.7) 10/13/21 22:42 Lymph # (Auto) 1.4 10^3/uL (0.8-4.8) 10/13/21 22:42 [place] # (Auto) 1.1 10^3/uL (0.2-0.9) H 10/13/21 22:42 Eos # (Auto) 0.1 10^3/uL (0.0-0.8) 10/13/21 22:42 Baso # (Auto) 0.0 10^3/uL (0.0-0.1) 10/13/21:42 Nucleated RBC % (auto) 0 % 10/13/21 22:42 Nucleated RBCs # 0.0 /100WBC 10/13/21 22:42 ESR 1 mm/hr (0-15) 10/13/21 22:42 Sodium 144 mmol/L (136-145) 10/13/21 22:42 Potassium 3.0 mmol/L (3.5-5.1) L 10/13/21 22:42 Chloride 105 mmol/L (98-107) 10/13/21 22:42 Carbon Dioxide 26 mmol/L (22-29) 10/13/21 22:42 Anion Gap 16.0 (5-19) 10/13/21 22:42 BUN 10 mg/dL (6-20) 10/13/21 22:42 Creatinine 0.7 mg/dL (0.5-0.9) 10/13/21 22:42 GFR Calculation 88.6 mL/min (90-130) L 10/13/21 22:42 Glucose 116 mg/dL (65-115) H 10/13/21 22:42 Calculated Osmolality 298 mOsm/kg (285-295) H 10/13/21 22:42 Lactate 2.0 mmol/L (0.5-2.2) 10/13/21 22:42 Calcium 9.0 mg/dL (8.5-10.5) 10/13/21:42 Total Bilirubin 0.3 mg/dL (0.15-1.2) 10/13/21 22:42 AST 19 U/L (0-32) 10/13/21 22:42 ALT 26 U/L (0-33) 10/13/21 22:42 Alkaline Phosphatase 82 IU/L (35-105) 10/13/21 22:42 C-Reactive Protein 2.9 mg/L (0.0-4.9) 10/13/21 22:42 Total Protein 5.2 g/dL (6.6-8.7) L 10/13/21 22:42 Albumin 3.2 g/dL (3.5-5.2) L 10/13/21 22:42 Globulin 2.0 g/dL (1.3-4.6) 10/13/21 22:42 Procalcitonin 0.09 ng/mL (0-0.5) 10/13/21 22:42 Urine Color Yellow (Yellow) 10/14/21 01:57 Urine Appearance Sl cloudy (CLEAR) A 10/14/21 01:57 Urine pH 5 (5-7) 10/14/21 01:57 Ur Specific [place] 1.015 (1.005-1.030) 10/14/21 01:57 Urine Protein 1+ (Negative) H 10/14/21 01:57 Urine Glucose (UA) Norm (Normal) 10/14/21 01:57 Urine Ketones Negative (Negative) 10/14/21 01:57 Urine Blood 3+ (Negative) H 10/14/21 01:57 Urine Nitrate Negative (Negative) 10/14/21 01:57 Urine Bilirubin Neg (Negative) 10/14/21 01:57 Urine Urobilinogen Norm mg/dL (Negative) 10/14/21 01:57 Ur Leukocyte Esterase 2+ (Negative) H 10/14/21 01:57 Urine RBC >100 /hpf (0-2) H 10/14/21 01:57 Urine WBC Too numerous to cnt /hpf (0-5) H 10/14/21 01:57 Ur Squamous Epith Cells 0-4 /hpf (0-5) H 10/14/21 01:57 Amorphous Sediment Not Reportable 10/14/21 01:57 Urine Bacteria 3+ /hpf (NONE) H 10/14/21 01:57 SARS-CoV-2 Ag (Rapid) Negative (Negative) 10/13/21 23:45 Discharge Plan Discharge Patient Disposition: Admitted As Inpatient Clinical Impression: Decubitus ulcer of sacral area, Abscess and cellulitis of gluteal region Condition: Stable Coding Level of Care Code ED Manager Ent for Jake Fwd Exam Comprehensive
[2021-10-13] MEDS: iohexol 300 mg/mL 100 mL Btl IV (23:28)
[2021-10-14] VITALS (9 sets, daily range): BP systolic 122–143; BP diastolic 62–79; PULSE 82–96; RESP 16–18; TEMP 36.7; O2SAT 93–96
--- NOTE | 2021-10-14 00:54 | PM.HP ---
Providers/Chief Complaint Primary Care Provider: JOSE A Thacker Chief Complaint: BED SORE History of Present Illness Lisa Pretty is a 51 year old female with past medical history of morbid obesity, recently discharged after being managed for COVID-19 pneumonia, came in today with chief complaint of increasing pain and drainage from her sacral area. She was experiencing pain in the sacral area even while she was in hospital recently, since discharge and has redness and swelling in that area has worsened Today her home health aide noticed that there is purulent, as well as pungent discharge from the area, and the site is looking ugly. Patient currently denies any fever chills, or any other constitutional symptoms. Upon arrival in the ER she was worked up for above-mentioned complaint: Pertinent imaging studies: CT Abdomen And Pelvis With Contrast:Focal soft tissue wound of inferomedial right gluteal fold.. There is soft tissue gas and soft tissue edema. A tract extends deeper into the subcutaneous along the medial aspect of the right perineum with additional fat stranding changes and foci of gas. No loculated drainable abscess seen. Pertinent labs: WBC:7 H&H ,12/41 PLT:260, serum sodium: 144 serum potassium:3 BUN and serum creatinine: 10/0.7 Procalcitonin 0.09. Patient received a dose of Vanco and Zosyn in the ER. Review of Systems General: Reports: 10 or more systems reviewed and unremarkable except in HPI and below Const: Denies: fever(s), chills, body aches, change in appetite or diaphoresis Card: Denies: palpitations, edema, swelling of feet/ankles, dyspnea on exertion, orthopnea or leg pain with exertion Resp: Denies: dyspnea, productive cough, wheezing or pain on inspiration GI: Denies: abdominal pain, nausea, vomiting, diarrhea or constipation : Denies: flank pain Musc: Denies: back pain, extremity pain or extremity swelling Neuro: Denies: headache(s), difficulty walking or confusion Medications/Allergies Home Medications Medication Instructions Recorded Confirmed Last Taken Type furosemide 20 mg tablet 40 mg PO QAM tab 11/29/20 09/30/21 Unknown History potassium chloride 10 mEq 20 meq PO DAILY tab 11/29/20 09/30/21 Unknown History tablet,extended release(part/cryst) albuterol sulfate 90 mcg/actuation 2 puff INHALATION QID PRN 09/30/21 09/30/21 Unknown History aerosol inhaler hydrocodone 5 mg-acetaminophen 325 1 tab PO QID PRN 09/30/21 09/30/21 Unknown History mg tablet lamotrigine 100 mg tablet 100 mg PO BID 09/30/21 09/30/21 Unknown History omeprazole 20 mg capsule,delayed 20 mg PO BEDTIME 09/30/21 09/30/21 Unknown History release bupropion HCl 200 mg tablet,12 hr 200 mg PO .morning #90 tab 10/01/21 10/01/21 Unknown Rx sustained-release (Wellbutrin SR) hydroxyzine HCl 50 mg tablet 50 mg PO BID PRN #60 tab 10/01/21 10/01/21 Unknown Rx zolpidem 5 mg tablet (Ambien) 5 mg PO .bedtime #30 tab 10/01/21 10/01/21 Unknown Rx apixaban 5 mg tablet (Eliquis) 5 mg PO BID@0900,2100 14 Days #28 10/04/21 Unknown Rx tab ascorbic acid (vitamin C) 500 mg 500 mg PO BID 14 Days #28 tab 10/04/21 Unknown Rx tablet (Vitamin C) benzonatate 100 mg capsule 200 mg PO TID PRN #10 cap 10/04/21 Unknown Rx dexamethasone 6 mg tablet 6 mg PO DAILY #7 tab 10/04/21 Unknown Rx ferrous gluconate 324 mg (37.5 mg 324 mg PO BIDWM 30 Days #60 tab 10/04/21 Unknown Rx iron) tablet fluticasone 250 mcg-salmeterol 50 1 inh INHALATION BID #30 ea 10/04/21 Unknown Rx mcg/dose blistr powdr for inhalation (Advair Diskus) tiotropium bromide 18 mcg capsule 1 cap INHALATION DAILY #14 inh 10/04/21 Unknown Rx with inhalation device (Spiriva with HandiHaler) zinc gluconate 50 mg tablet 50 mg PO DAILY #14 tab 10/04/21 Unknown Rx Allergies Allergy/AdvReac Type Severity Reaction Status Date / Time aripiprazole [From Abilify] Allergy Unknown Verified 09/30/21 08:28 fluoxetine [From Prozac] Allergy Unknown Verified 09/30/21 08:28 haloperidol [From Haldol] Allergy Unknown Verified 09/30/21 08:28 Sulfa (Sulfonamide Allergy Unknown Verified 09/30/21 08:28 Antibiotics) PFSH Acute PFSH: Medical History (Updated 10/14/21 @ 01:03 by Joe Tripp DO) Borderline personality disorder Chronic post-traumatic stress disorder Diarrhea Intellectual functioning disability History of since child lucas Major depressive disorder, recurrent episode, moderate with anxious distress Morbid obesity Obstructive sleep apnea Psychiatric care Sleep apnea Surgical History H/O uvulectomy And soft palate revision. S/P bilateral breast reduction (~1998) S/P colonoscopy (~06/2009) S/P tonsillectomy Family History Mother Diabetes Heart disease Hyperlipidemia Stroke Grandfather Diabetes Paternal Family/Other Diabetes Maternal Aunt Grandmother Heart disease Maternal Other Breast cancer Social History Smoking and tobacco status: never smoked Alcohol intake: never Vitals/I&O/Wt Last Vital Signs Pulse 89 10/14/21 00:52 Resp 18 10/14/21 00:52 BP 122/78 10/14/21 00:52 Pulse Ox 95 10/14/21 00:52 10/13/21 10/13/21 10/14/21 14:59 22:59 06:59 Intake Total 1050 / 1050 Balance 1050 / 1050 Weight last 48 hrs Weight 169.19 kg Physical Exam Const: COMMON NORMALS: patient oriented x3 HENMT: COMMON NORMALS: normocephalic, atraumatic, hearing grossly normal bilaterally and external ears normal HEAD & SCALP: normocephalic and atraumatic EXTERNAL EAR: Yes external ears normal Eye: COMMON NORMALS: no scleral icterus GENERAL EYE: appearance normal, both eyes and all related structures Chest: COMMONS NORMALS: normal inspection of the chest and normal palpation of entire chest wall CHEST: Yes Symmetrical chest wall rise Resp: COMMON NORMALS: normal respiratory effort, No retractions, No use of accessory muscles and clear to auscultation bilaterally EFFORT & INSPECTION: Yes symmetric chest movement AUSCULTATION: clear to auscultation bilaterally Cardio: COMMON NORMALS: regular rate, regular rhythm, S1 normal heart sound present, S2 normal heart sound present, No gallops present (Cardio), No murmurs present (Cardio), No rub (Cardio) and Peripheral pulses 2+ throughout RATE: regular rate RHYTHM: regular rhythm HEART SOUNDS: S1 normal heart sound present and S2 normal heart sound present PERIPHERAL PULSES: Peripheral pulses 2+ throughout GI: COMMON NORMALS: Normal to inspection, nondistended, normoactive bowel sounds present, Soft to palpation, non-tender, No hepatosplenomegaly present and no masses AUSCULTATION: Yes normoactive bowel sounds PALPATION: Yes Soft to palpation and Yes No hepatosplenomegaly present RECTAL EXAM: deferred Extremity: COMMON NORMALS: no clubbing, cyanosis or edema and no pedal edema Neuro: COMMON NORMALS: patient oriented x3 Skin: NARRATIVE SKIN EXAM: opening to the left superior gluteal fold, left of midline. black eschar surrounding with central necrosis with some surrounding erythema. purulent, pungent drainage from the area. Data : 10/13/21 22:42 10/13/21 22:42 Micro: Microbiology 10/13/21 22:42 Blood Culture - Preliminary Blood SPECIMEN COLLECTED 10/13/21 22:42 Blood Culture - Preliminary Blood SPECIMEN COLLECTED A&P Assessment and plan (1) Chronic post-traumatic stress disorder: Status: Chronic (2) Major depressive disorder, recurrent episode, moderate with anxious distress: Status: Chronic (3) Gluteal cleft wound: Status: Acute Plan Assessment: #Gluteal wound # Morbid obesity Plan: Follow blood cultures urine culture For lactic acid Continue IV antibiotics (Zosyn) Consider surgery consult for possible debridement DVT PPX: On LOVENOX #Code Status :Full code Attestations Medical Necessity Statement*: Patient needs to be in hospital for management of gluteal wound. Need for IV antibiotics. Possible debridement, anticipated length of stay greater than 2 midnights. 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
[2021-10-14] MEDS: potassium chloride ER 20 mEq Tablet 40 MEQ PO (00:59)
[2021-10-14] MEDS: lidocaine 2% viscous 15 ML, aluminum-mag hydrox-simethicon 30 ML, sucralfate oral liq 1 GM PO (01:40)
[2021-10-14 02:04] LABS: Add Urine Microscopic? YES; Bilirubin Urine Neg (Negative); Blood Urine 3+ (Negative); Glucose Urine UA Norm (Normal); Ketones Urine Negative (Negative); Leukocyte Esterase Urine 2+ (Negative); Nitrate Urine Negative (Negative); Protein Urine 1+ (Negative); Specific Gravity, Urine 1.015 (1.005-1.030); Urine Color Yellow (Yellow); Urobilinogen Urine Norm (Negative); pH Urine 5 (5-7)
[2021-10-14 02:13] LABS: Add Urine Culture? Yes; Bacteria Urine 3+ /hpf; RBC Urine >100 /hpf (0-2); Squamous Epithelial Cell Urine 0-4 /hpf (0-5); WBC Urine TOO NUMEROUS TO CNT /hpf (0-5)
[2021-10-14] MEDS: oxyCODONE-APAP 5-325 mg Tablet 1 TAB PO (03:33)
--- NOTE | 2021-10-14 08:21 | P.PN_ITS ---
Subjective Subjective: Interval history: History and physical reviewed. Patient reports she hurts less when she lays on her stomach which she is doing currently. States her breathing has been doing okay, but her mobility has suffered since COVID. She is still in wheelchair most of the day although she can transfer on her own. Medications: Reviewed: Yes Vitals/I&O/Wt Last Vital Signs Pulse 96 10/14/21 08:04 Resp 18 10/14/21 08:04 BP 126/78 10/14/21 04:00 Pulse Ox 93 10/14/21 08:04 10/13/21 10/14/21 10/14/21 22:59 06:59 14:59 Intake Total 1050 / 1050 Balance 1050 / 1050 Weight last 48 hrs Weight 169.19 kg Physical Exam Narrative: EXAM NARRATIVE: General exam is a female, no apparent distress, laying on her stomach Neck supple Cardiovascular regular rate and rhythm Lungs clear Abdomen soft obese Buttock draining decubitus with some necrosis around the center right buttock Extremities no cyanosis clubbing or edema Data : 10/13/21 22:42 10/13/21 22:42 Micro: Microbiology 10/13/21 22:42 Blood Culture - Preliminary Blood SPECIMEN COLLECTED 10/13/21 22:42 Blood Culture - Preliminary Blood SPECIMEN COLLECTED A&P Assessment and plan (1) Abscess and cellulitis of gluteal region: Significant decubitus, with surrounding cellulitis. No obvious drainable abscess on CT, as it appears to be spontaneously draining currently. Placed on vancomycin and Zosyn, which should continue. 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
[2021-10-14] MEDS: piperacillin-tazobactam 3.375 GM in sodium chloride 0.9% (plus) 50 ML IV ×2 (08:34→17:36)
[2021-10-14] MEDS: enoxaparin 40 mg/0.4 mL Syringe SUBCUT ×2 (08:35→17:36)
--- NOTE | 2021-10-14 08:51 | PC.PHAR ---
pt states she takes care of her own medications-pt states the medications she got discharged with on the hasnt been started pt states she just got the meds on sat 10/12/21 pt states she started the azithromycin 500mg on 10/12/21 rx was filled on 10/04/21 3d/s pt states she has one dose left-pt states she has the eliquis but hasnt started taking it-notes are made in the pharmacy comments-
[2021-10-14] MEDS: potassium chloride ER 20 mEq Tablet PO (09:35)
[2021-10-14] MEDS: buPROPion SR (12 HR) 100 mg Tablet 200 MG PO (09:35)
[2021-10-14] MEDS: lamoTRIgine 100 mg Tablet PO ×2 (09:35→17:36)
[2021-10-14] MEDS: vancomycin 1,500 MG/300 ML PIGGYBACK 200 MG IV ×2 (10:42→17:35)
[2021-10-14 11:18] LABS: Basophils % 0.7 %; Eosinophils # 0.1 10^3/uL (0.0-0.8); Eosinophils % 3.3 %; Hematocrit 39.7 % (37.0-47.0); Hemoglobin 12.2 g/dL (11.5-15.3); Lymphocytes # 1.1 10^3/uL (0.8-4.8); Lymphocytes % 25.1 %; Mean Corpuscular HGB Conc 30.7 g/dL (30.0-36.0); Mean Corpuscular Hemoglobin 25.1 pg (28.0-34.0); Mean Corpuscular Volume 81.7 fl (81-99); Mean Platelet Volume 11.1 fL (7.4-10.4); Monocytes # 0.7 10^3/uL (0.2-0.9); Monocytes % 16.5 %; Neutrophils # 2.28 10^3/uL (1.8-7.7); Neutrophils % 53.9 %; Nucleated Red Blood Cells % 0 %; Platelet Count 149 10^3/cmm (130-400); Red Blood Count 4.86 10^6/uL (4.1-5.3); Red Cell Distribution Width 20.8 % (12.1-15.1); White Blood Count 4.2 10^3/uL (4.0-10.0)
[2021-10-14 11:26] LABS: Anion Gap 14.5 (5-19); Blood Urea Nitrogen 8 mg/dL (6-20); Calcium 7.8 mg/dL (8.5-10.5); Carbon Dioxide 26 mmol/L (22-29); Chloride 106 mmol/L (98-107); Glomerular Filtration Rate 105.8 mL/min (90-130); Glucose 103 mg/dL (65-115); Magnesium 2.3 mg/dL (1.7-2.3); Osmolality Calculated 295 mOsm/kg (285-295); Potassium 3.5 mmol/L (3.5-5.1); Sodium 143 mmol/L (136-145)
--- NOTE | 2021-10-14 15:07 | PM.CONSULT ---
Providers/Reason For Consult Consulting Physician/Specialty*: Satish Reason for Consult*: decubitus ulcer Requesting Physician: Satish Attending Physician: Austin Covarrubias MD Primary Care Provider: JOSE A Thacker History of Present Illness History of Present Illness Lisa Pretty is a 51 year old female who was recently discharged on 10/04/2021 with COVID-19 pneumonia. Patient was in the hospital for about 4 days. Patient is morbidly obese, not a diabetic. She denies any fevers or chills. She states that she has been having drainage and when her bullet slug casting machine operator took a photograph of the wound she decided to come to the ER for further evaluation.She is wheelchair-bound Medications/Allergies Home Medications Medication Instructions Recorded Confirmed Last Taken Type furosemide 20 mg tablet 20 - 40 mg PO QAM tab 11/29/20 10/14/21 Unknown History potassium chloride 10 mEq 20 meq PO DAILY tab 11/29/20 10/14/21 Unknown History tablet,extended release(part/cryst) albuterol sulfate 90 mcg/actuation 2 puff INHALATION QID PRN 09/30/21 10/14/21 Unknown History aerosol inhaler hydrocodone 5 mg-acetaminophen 325 1 tab PO QID PRN 09/30/21 10/14/21 Unknown History mg tablet lamotrigine 100 mg tablet 100 mg PO BID 09/30/21 10/14/21 Unknown History omeprazole 20 mg capsule,delayed 20 mg PO BEDTIME 09/30/21 10/14/21 Unknown History release hydroxyzine HCl 50 mg tablet 50 mg PO BID PRN #60 tab 10/01/21 10/14/21 Unknown Rx benzonatate 100 mg capsule 200 mg PO TID PRN #10 cap 10/04/21 10/14/21 Unknown Rx fluticasone 250 mcg-salmeterol 50 1 inh INHALATION BID #30 ea 10/04/21 10/14/21 Unknown Rx mcg/dose blistr powdr for inhalation (Advair Diskus) apixaban 5 mg tablet (Eliquis) 5 mg PO BID@0900,2100 10/14/21 10/14/21 Unknown History ascorbic acid (vitamin C) 500 mg 500 mg PO BID 10/14/21 10/14/21 Unknown History tablet (Vitamin C) azithromycin 500 mg tablet 500 mg PO DAILY 10/14/21 10/14/21 10/13/21 History bupropion HCl 200 mg tablet,12 hr 200 mg PO QAM 10/14/21 10/14/21 Unknown History sustained-release dexamethasone 6 mg tablet 6 mg PO DAILY 10/14/21 10/14/21 Unknown History ferrous gluconate 324 mg (37.5 mg 324 mg PO BIDWM 10/14/21 10/14/21 Unknown History iron) tablet hydrocortisone 2.5 % topical cream See Rx Instructions .ROUTE .COMPLEX 10/14/21 10/14/21 Unknown History with perineal applicator tiotropium bromide 18 mcg capsule 1 cap INHALATION DAILY 10/14/21 10/14/21 Unknown History with inhalation device (Spiriva with HandiHaler) zinc gluconate 50 mg tablet 50 mg PO DAILY 10/14/21 10/14/21 Unknown History zolpidem 5 mg tablet (Ambien) 5 mg PO BEDTIME 10/14/21 10/14/21 Unknown History Allergies Allergy/AdvReac Type Severity Reaction Status Date / Time aripiprazole [From Abilify] Allergy Unknown Verified 09/30/21 08:28 fluoxetine [From Prozac] Allergy Unknown Verified 09/30/21 08:28 haloperidol [From Haldol] Allergy Unknown Verified 09/30/21 08:28 Sulfa (Sulfonamide Allergy Unknown Verified 09/30/21 08:28 Antibiotics) Current Medications Generic Name Dose Route Start Last Admin Trade Name Freq PRN Reason Stop Dose Admin Bupropion HCl 200 mg 10/14/21 09:00 10/14/21 09:35 Bupropion Sr (12 Hr) 100 Mg Tablet PO 200 mg DAILY BARB Administration Enoxaparin Sodium 40 mg 10/14/21 09:00 10/14/21 08:35 Enoxaparin 40 Mg/0.4 Ml Syringe SUBCUT 40 mg BID BARB Administration Piperacillin Sod/Tazobactam 50 mls @ 12.5 mls/hr 10/14/21 08:00 10/14/21 09:04 Sod 3.375 gm/ Sodium Chloride IV Infused Q8H BARB Infusion Protocol Vancomycin/PEG/NADA/Lysine/Water 1,500 mg in 300 mls @ 200 mls/hr 10/14/21 10:00 10/14/21 12:18 Vancocin IV Infused Q8H BARB Infusion Lamotrigine 100 mg 10/14/21 09:00 10/14/21 09:35 Lamotrigine 100 Mg Tablet PO 100 mg BID BARB Administration Oxycodone/Acetaminophen 1 tab 10/14/21 00:49 10/14/21 03:33 Oxycodone-Apap 5-325 Mg Tablet PO 1 tab Q4H PRN Administration SEVERE PAIN Potassium Chloride 20 meq 10/14/21 09:00 10/14/21 09:35 Potassium Chloride Er 20 Meq Tablet PO 20 meq DAILY BARB Administration Fluticasone/Salmeterol 1 puff 10/14/21 08:00 10/14/21 08:04 Fluticasone-Salmeterol 250-50 Diskus INHALATION Not Given BID.RESPIRATORY BARB PFSH Acute PFSH: Medical History (Updated 10/14/21 @ 01:03 by Joe Tripp DO) Borderline personality disorder Chronic post-traumatic stress disorder Diarrhea Intellectual functioning disability History of since child lucas Major depressive disorder, recurrent episode, moderate with anxious distress Morbid obesity Obstructive sleep apnea Psychiatric care Sleep apnea Surgical History H/O uvulectomy And soft palate revision. S/P bilateral breast reduction (~1998) S/P colonoscopy (~06/2009) S/P tonsillectomy Family History Mother Diabetes Heart disease Hyperlipidemia Stroke Grandfather Diabetes Paternal Family/Other Diabetes Maternal Aunt Grandmother Heart disease Maternal Other Breast cancer Social History Smoking and tobacco status: never smoked Alcohol intake: never Vitals/I&O/Wt Last Vital Signs Temp 98.0 F 10/14/21 12:00 Pulse 85 10/14/21 12:00 Resp 18 10/14/21 12:00 BP 139/62 10/14/21 12:00 Pulse Ox 96 10/14/21 12:00 10/14/21 10/14/21 10/14/21 06:59 14:59 22:59 Intake Total 1050 / 1050 890 / 890 Balance 1050 / 1050 890 / 890 Weight last 48 hrs Weight 360 lb 1 oz Weight 373 lb Physical Exam Narrative: EXAM NARRATIVE: HEENT: Normocephalic Eye: Sclera /conjunctiva normal Abdomen: Soft Neurological: Oriented to place person and time Skin: Intact,significant area of induration involving the right gluteal/sacral area with large decubitus ulcer measuring about 6 x 6 cm with necrotic tissue. Data : 10/14/21 10:50 10/14/21 10:52 Micro: Microbiology 10/13/21 22:42 Blood Culture - Preliminary Blood SPECIMEN COLLECTED 10/13/21 22:42 Blood Culture - Preliminary Blood SPECIMEN COLLECTED A&P Assessment and plan (1) Decubitus ulcer of sacral area: 51-year-old female who was recently hospitalized and has now developed sacral decubitus ulcer involving the right gluteal area. CT abdomen and pelvis performed yesterday showed soft tissue inflammation around the site of the wound Continue IV vancomycin and Zosyn N.p.o. 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
[2021-10-14] MEDS: pantoprazole DR 40 mg Tablet PO (21:51)
[2021-10-15] VITALS (13 sets, daily range): BP systolic 130–148; BP diastolic 63–91; PULSE 78–118; RESP 16–18; TEMP 36.3–37.2; O2SAT 92–99
[2021-10-15] MEDS: piperacillin-tazobactam 3.375 GM in sodium chloride 0.9% (plus) 50 ML IV ×3 (00:21→23:47)
[2021-10-15] MEDS: oxyCODONE-APAP 5-325 mg Tablet 1 TAB PO ×4 (01:28→23:48)
[2021-10-15] MEDS: vancomycin 1,500 MG/300 ML PIGGYBACK 200 MG IV (02:45)
[2021-10-15 06:34] LABS: Basophils % 0.4 %; Eosinophils # 0.1 10^3/uL (0.0-0.8); Eosinophils % 2.7 %; Hematocrit 39.3 % (37.0-47.0); Hemoglobin 11.6 g/dL (11.5-15.3); Lymphocytes % 20.9 %; Mean Corpuscular HGB Conc 29.5 g/dL (30.0-36.0); Mean Corpuscular Volume 84.7 fl (81-99); Mean Platelet Volume 9.9 fL (7.4-10.4); Monocytes # 0.7 10^3/uL (0.2-0.9); Monocytes % 15.2 %; Neutrophils # 2.89 10^3/uL (1.8-7.7); Neutrophils % 60.4 %; Nucleated Red Blood Cells % 0 %; Platelet Count 274 10^3/cmm (130-400); Red Blood Count 4.64 10^6/uL (4.1-5.3); Red Cell Distribution Width 20.8 % (12.1-15.1); White Blood Count 4.8 10^3/uL (4.0-10.0)
[2021-10-15 07:06] LABS: Anion Gap 14.3 (5-19); Blood Urea Nitrogen 10 mg/dL (6-20); Calcium 8.4 mg/dL (8.5-10.5); Carbon Dioxide 24 mmol/L (22-29); Chloride 110 mmol/L (98-107); Glomerular Filtration Rate 88.6 mL/min (90-130); Glucose 101 mg/dL (65-115); Osmolality Calculated 299 mOsm/kg (285-295); Potassium 3.3 mmol/L (3.5-5.1); Sodium 145 mmol/L (136-145)
--- NOTE | 2021-10-15 08:09 | PM.PN ---
Subjective Subjective: Lisa reports she is doing okay. She wants to make sure she gets her Ambien every night. She is ready for surgery. She would like something for hemorrhoids. Medications: Reviewed: Yes Vitals/I&O/Wt Last Vital Signs Temp 98.2 F 10/15/21 04:00 Pulse 80 10/15/21 04:00 Resp 17 10/15/21 04:00 BP 136/72 10/15/21 04:00 Pulse Ox 92 10/15/21 04:00 10/14/21 10/15/21 10/15/21 22:59 06:59 14:59 Intake Total 890 / 1780 350 / 2130 Output Total 120 / 120 210 / 330 Balance 770 / 1660 140 / 1800 Weight last 48 hrs Weight 163.322 kg Weight 169.19 kg Physical Exam Narrative: General exam is a female, no distress Neck supple Cardiovascular regular rate and rhythm Lungs clear Abdomen soft obese Extremities no cyanosis clubbing or edema Data : 10/15/21 05:52 10/15/21 05:52 Micro: Microbiology 10/13/21 22:42 Blood Culture - Preliminary Blood NEGATIVE TO DATE 10/13/21 22:42 Blood Culture - Preliminary Blood NEGATIVE TO DATE A&P Assessment and plan (1) Abscess and cellulitis of gluteal region: Significant decubitus, with surrounding cellulitis. No obvious drainable abscess on CT, as it appears to be spontaneously draining currently. Placed on vancomycin and Zosyn, and will continue these at this point Surgery consultation appreciated. 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
[2021-10-15 10:32] LABS: Vancomycin Trough 26.8 ug/mL (10-15)
--- NOTE | 2021-10-15 12:19 | P.ANESASSM_ITS ---
Pre-Anesthetic Assessment Height/Weight: Height 1.5 m Weight 163.322 kg Temp Pulse Resp BP Pulse Ox 98.2 F 78 18 147/63 95 10/15/21 11:58 10/15/21 11:58 10/15/21 11:58 10/15/21 11:58 10/15/21 11:58 Preop Diagnosis: Sacral decubitus ulcer Operation Date: 10/15/21 13:10 Proposed Procedures p Incision And Drainage decubitus ulcer(Not Applicable) - Steve Marin MD Familial anesthetic complications: none Was Beta Gemini taken within 24 hours: N/A Was Clonidine taken within 24 hours: N/A Last intake: Intake Last Liquid Date 10/14/21 Last Liquid Time 23:50 Last Solid Date 10/14/21 Last Solid Time 22:30 Social No alcohol and No tobacco Exam alert, oriented x 3, clear to auscultation bilaterally and regular rate & rhythm Airway Mallampati: Class IV Dentition: other (no teeth) Comments: Comments: small mouth, large neck circumference Pulmonary Asthma Covid last month Metabolic Morbid Obesity Neuropsych Seizure Anesthetic Plan ASA status: 4 Anesthesia: General Medications/Allergies Home Medications Medication Instructions Recorded Confirmed Last Taken Type furosemide 20 mg tablet 20 - 40 mg PO QAM tab 11/29/20 10/14/21 Unknown History potassium chloride 10 mEq 20 meq PO DAILY tab 11/29/20 10/14/21 Unknown History tablet,extended release(part/cryst) albuterol sulfate 90 mcg/actuation 2 puff INHALATION QID PRN 09/30/21 10/14/21 Unknown History aerosol inhaler hydrocodone 5 mg-acetaminophen 325 1 tab PO QID PRN 09/30/21 10/14/21 Unknown History mg tablet lamotrigine 100 mg tablet 100 mg PO BID 09/30/21 10/14/21 Unknown History omeprazole 20 mg capsule,delayed 20 mg PO BEDTIME 09/30/21 10/14/21 Unknown History release hydroxyzine HCl 50 mg tablet 50 mg PO BID PRN #60 tab 10/01/21 10/14/21 Unknown Rx benzonatate 100 mg capsule 200 mg PO TID PRN #10 cap 10/04/21 10/14/21 Unknown Rx fluticasone 250 mcg-salmeterol 50 1 inh INHALATION BID #30 ea 10/04/21 10/14/21 Unknown Rx mcg/dose blistr powdr for inhalation (Advair Diskus) apixaban 5 mg tablet (Eliquis) 5 mg PO BID@0900,2100 10/14/21 10/14/21 Unknown History ascorbic acid (vitamin C) 500 mg 500 mg PO BID 10/14/21 10/14/21 Unknown History tablet (Vitamin C) azithromycin 500 mg tablet 500 mg PO DAILY 10/14/21 10/14/21 10/13/21 History bupropion HCl 200 mg tablet,12 hr 200 mg PO QAM 10/14/21 10/14/21 Unknown History sustained-release dexamethasone 6 mg tablet 6 mg PO DAILY 10/14/21 10/14/21 Unknown History ferrous gluconate 324 mg (37.5 mg 324 mg PO BIDWM 10/14/21 10/14/21 Unknown History iron) tablet hydrocortisone 2.5 % topical cream See Rx Instructions .ROUTE .COMPLEX 10/14/21 10/14/21 Unknown History with perineal applicator tiotropium bromide 18 mcg capsule 1 cap INHALATION DAILY 10/14/21 10/14/21 Unknown History with inhalation device (Spiriva with HandiHaler) zinc gluconate 50 mg tablet 50 mg PO DAILY 10/14/21 10/14/21 Unknown History zolpidem 5 mg tablet (Ambien) 5 mg PO BEDTIME 10/14/21 10/14/21 Unknown History Allergies Allergy/AdvReac Type Severity Reaction Status Date / Time aripiprazole [From Abilify] Allergy Unknown Verified 09/30/21 08:28 fluoxetine [From Prozac] Allergy Unknown Verified 09/30/21 08:28 haloperidol [From Haldol] Allergy Unknown Verified 09/30/21 08:28 Sulfa (Sulfonamide Allergy Unknown Verified 09/30/21 08:28 Antibiotics) Current Medications Generic Name Dose Route Start Last Admin Trade Name Freq PRN Reason Stop Dose Admin Bupropion HCl 200 mg 10/14/21 09:00 10/15/21 09:16 Bupropion Sr (12 Hr) 100 Mg Tablet PO Not Given DAILY [facility] Enoxaparin Sodium 40 mg 10/14/21 09:00 10/15/21 09:18 Enoxaparin 40 Mg/0.4 Ml Syringe SUBCUT Not Given BID BARB Furosemide 40 mg 10/15/21 06:00 10/15/21 05:11 Furosemide 40 Mg Tablet PO Not Given QAM BARB Piperacillin Sod/Tazobactam 50 mls @ 12.5 mls/hr 10/14/21 08:00 10/15/21 09:08 Sod 3.375 gm/ Sodium Chloride IV 12.5 mls/hr Q8H BARB Administration Protocol Lamotrigine 100 mg 10/14/21 09:00 10/15/21 09:17 Lamotrigine 100 Mg Tablet PO Not Given BID BARB Oxycodone/Acetaminophen 1 tab 10/14/21 00:49 10/15/21 09:12 Oxycodone-Apap 5-325 Mg Tablet PO 1 tab Q4H PRN Administration [facility] Pantoprazole Sodium 40 mg 10/14/21 21:00 10/14/21 21:[address] 40 Mg Tablet PO 40 mg BEDTIME BARB Administration Potassium Chloride 20 meq 10/14/21 09:00 10/15/21 09:18 Potassium Chloride Er 20 Meq Tablet PO Not Given DAILY BARB Fluticasone/Salmeterol 1 puff 10/14/21 08:00 10/15/21 09:25 Fluticasone-Salmeterol 250-50 Diskus INHALATION 1 puff BID.RESPIRATORY BARB Administration [facility] Anesthesia Medical History (Updated 10/14/21 @ 01:03 by Joe Tripp DO) Borderline personality disorder Chronic post-traumatic stress disorder Diarrhea Intellectual functioning disability History of since child lucas Major depressive disorder, recurrent episode, moderate with anxious distress Morbid obesity Obstructive sleep apnea Psychiatric care Sleep apnea Surgical History H/O uvulectomy And soft palate revision. S/P bilateral breast reduction (~1998) S/P colonoscopy (~06/2009) S/P tonsillectomy Family History Mother Diabetes Heart disease Hyperlipidemia Stroke Grandfather Diabetes Paternal Family/Other Diabetes Maternal Aunt Grandmother Heart disease Maternal Other Breast cancer Social History Smoking and tobacco status: never smoked Alcohol intake: never Data Anesthesia : 10/15/21 05:52 10/15/21 05:52 Short CBC 10/13/21 10/14/21 10/15/21 Range/Units 22:42 10:50 05:52 WBC 7.1 4.2 4.8 (4.0-10.0) 10^3/uL Hgb 12.5 12.2 11.6 (11.5-15.3) g/dL Hct 41.6 39.7 39.3 (37.0-47.0) % MCV 82.4 81.7 84.7 (81-99) fl Plt Count 260 149 D 274 D (130-400) 10^3/cmm Neut % (Auto) 62.2 53.9 60.4 % Neut # (Auto) 4.43 2.28 2.89 (1.8-7.7) 10^3/uL BMP 10/13/21 10/14/21 10/15/21 22:42 10:52 05:52 Sodium 144 143 145 Potassium 3.0 L 3.5 3.3 L Chloride 105 106 110 H Carbon Dioxide 26 26 24 BUN 10 8 10 Creatinine 0.7 0.6 0.7 Glucose 116 H 103 101 Calcium 9.0 7.8 L 8.4 L Liver Function 10/13/21 Range/Units 22:42 Total Bilirubin 0.3 (0.15-1.2) mg/dL AST 19 (0-32) U/L ALT 26 (0-33) U/L Alkaline Phosphatase 82 (35-105) IU/L Albumin 3.2 L (3.5-5.2) g/dL Urine 10/14/21 Range/Units 01:57 Urine Color Yellow (Yellow) Urine Appearance Sl cloudy A (CLEAR) Urine pH 5 (5-7) Ur Specific [place] 1.015 (1.005-1.030) Urine Protein 1+ H (Negative) Urine Glucose (UA) Norm (Normal) Urine Ketones Negative (Negative) Urine Nitrate Negative (Negative) Urine Bilirubin Neg (Negative) Ur Leukocyte Esterase 2+ H (Negative) Urine RBC >100 H (0-2) /hpf Urine WBC Too numerous to cnt H (0-5) /hpf COVID Results 10/13/21 23:45 SARS-CoV-2 Ag (Rapid) Cancelled Coags 10/13/21 10/13/21 22:42 22:42 ESR 1 C-Reactive Protein 2.9 Microbiology 10/14/21 01:57 Urine Culture - Preliminary Urine,Clean Catch 10/13/21 22:42 Blood Culture - Preliminary Blood NEGATIVE TO DATE 10/13/21 22:42 Blood Culture - Preliminary Blood NEGATIVE TO DATE Cardiac Studies: Echocardiogram 10/01/21
--- NOTE | 2021-10-15 12:21 | PM.PN ---
Subjective Subjective: no issues overnight Medications: Reviewed: Yes Vitals/I&O/Wt Last Vital Signs Temp 98.2 F 10/15/21 11:58 Pulse 78 10/15/21 11:58 Resp 18 10/15/21 11:58 BP 147/63 10/15/21 11:58 Pulse Ox 95 10/15/21 11:58 10/14/21 10/15/21 10/15/21 22:59 06:59 14:59 Intake Total 890 / 2130 350 / 2130 Output Total 120 / 330 210 / 330 Balance 770 / 1800 140 / 1800 Weight last 48 hrs Weight 360 lb 1 oz Weight 373 lb Physical Exam Narrative: Sacral/gluteal decubitus ulcer Data : 10/15/21 05:52 10/15/21 05:52 Micro: Microbiology 10/14/21 01:57 Urine Culture - Preliminary Urine,Clean Catch 10/13/21 22:42 Blood Culture - Preliminary Blood NEGATIVE TO DATE 10/13/21 22:42 Blood Culture - Preliminary Blood NEGATIVE TO DATE A&P Assessment and plan (1) Decubitus ulcer of sacral area: 51-year-old female who was recently hospitalized and has now developed sacral decubitus ulcer involving the right gluteal area. CT abdomen and pelvis performed yesterday showed soft tissue inflammation around the site of the wound Continue IV vancomycin and Zosyn Plan for debridement of sacral decubitus ulcer under MAC today Status: Acute Attestations Medical Necessity Statement*: as per primary Coding Level of Care Code Acute Technical Services Rep for [facility] Diagnoses Decubitus ulcer of sacral area L89.159
--- NOTE | 2021-10-15 13:15 | PM.OP ---
Operative Report Date of procedure: October 15, 2021 Pre-op diagnosis: Gluteal decubitus ulcer Post-op diagnosis: Right gluteal decubitus ulcer measuring 6 x 7 x 5 cm Procedure done: Excisional debridement of skin and subcutaneous tissue of right gluteal decubitus ulcer measuring 6 x 7 x 5 cm using cautery Specimens removed/disposition: Aerobic and anaerobic cultures Surgeon: Steve Marin Anesthesia: MAC Condition: stable Disposition: PACU Procedure: The patient was taken to the operating room and placed in the right lateral position under MAC. She was already on therapeutic IV antibiotics. The area around the right gluteal decubitus ulcer was prepped and draped in a sterile manner. Digital examination of the ulcer resulted in drainage of larry pus. Aerobic and anaerobic cultures were obtained. Using electrocautery excisional debridement of necrotic skin and subcutaneous tissue was performed and the wound measured 7 x 6 x 5 cm. Loculations were taken down bluntly. The wound was irrigated with saline, hemostasis ensured with electrocautery and 2 pieces of 4 x 8 cm Surgicel was placed. The wound was packed with Kerlix soaked in 0.5% Marcaine and covered with ABDs. The patient was transferred to recovery room in stable condition.
--- NOTE | 2021-10-15 15:29 | ANE.PACU2 ---
Inpatient post-anesthesia follow up: Airway intact: Yes Vital signs: Temperature 98.2 F Pulse Rate 112 Respiratory Rate 18 Blood Pressure 148/88 Pulse Oximetry 98 Oxygen Delivery Me thod Room Air Oxygen Flow Rate Fraction of Inspir ed Oxygen Hydration adequate: Yes Nausea and vomiting: No Pain level: 2 Mental status: Baseline
[2021-10-15] MEDS: lidocaine 1% 5 ML in potassium chloride premix 100 ML 25 ML IV (16:05)
[2021-10-15] MEDS: lamoTRIgine 100 mg Tablet PO (17:01)
[2021-10-15] MEDS: enoxaparin 40 mg/0.4 mL Syringe SUBCUT (17:02)
[2021-10-15] MEDS: zolpidem 5 mg Tablet PO (21:08)
[2021-10-15] MEDS: pantoprazole DR 40 mg Tablet PO (21:09)
[2021-10-16] VITALS (11 sets, daily range): BP systolic 100–129; BP diastolic 50–79; PULSE 70–86; RESP 16–20; TEMP 34.1–37.6; O2SAT 90–98
[2021-10-16] MEDS: oxyCODONE-APAP 5-325 mg Tablet 1 TAB PO ×3 (04:11→20:36)
[2021-10-16] MEDS: FUROsemide 40 mg Tablet PO (05:42)
[2021-10-16] MEDS: piperacillin-tazobactam 3.375 GM in sodium chloride 0.9% (plus) 50 ML IV ×3 (06:22→20:37)
[2021-10-16 07:58] LABS: Basophils % 0.9 %; Eosinophils # 0.1 10^3/uL (0.0-0.8); Eosinophils % 4.2 %; Hematocrit 39.4 % (37.0-47.0); Hemoglobin 11.5 g/dL (11.5-15.3); Lymphocytes # 0.6 10^3/uL (0.8-4.8); Lymphocytes % 19.2 %; Mean Corpuscular HGB Conc 29.2 g/dL (30.0-36.0); Mean Corpuscular Hemoglobin 25.7 pg (28.0-34.0); Mean Corpuscular Volume 87.9 fl (81-99); Mean Platelet Volume 9.1 fL (7.4-10.4); Monocytes # 0.6 10^3/uL (0.2-0.9); Monocytes % 16.8 %; Neutrophils # 1.96 10^3/uL (1.8-7.7); Neutrophils % 58.6 %; Nucleated Red Blood Cells % 0 %; Platelet Count 241 10^3/cmm (130-400); Red Blood Count 4.48 10^6/uL (4.1-5.3); Red Cell Distribution Width 21.2 % (12.1-15.1); White Blood Count 3.3 10^3/uL (4.0-10.0)
[2021-10-16 08:30] LABS: Anion Gap 13.4 (5-19); Blood Urea Nitrogen 10 mg/dL (6-20); Calcium 8.3 mg/dL (8.5-10.5); Carbon Dioxide 22 mmol/L (22-29); Chloride 108 mmol/L (98-107); Glomerular Filtration Rate 105.8 mL/min (90-130); Glucose 102 mg/dL (65-115); Osmolality Calculated 289 mOsm/kg (285-295); Potassium 3.4 mmol/L (3.5-5.1); Sodium 140 mmol/L (136-145)
[2021-10-16] MEDS: buPROPion SR (12 HR) 100 mg Tablet 200 MG PO (10:11)
[2021-10-16] MEDS: potassium chloride ER 20 mEq Tablet 40 MEQ PO (10:12)
[2021-10-16] MEDS: lamoTRIgine 100 mg Tablet PO ×2 (10:12→18:39)
[2021-10-16] MEDS: enoxaparin 40 mg/0.4 mL Syringe SUBCUT ×2 (10:12→18:39)
[2021-10-16] MEDS: potassium chloride ER 20 mEq Tablet PO (10:12)
--- NOTE | 2021-10-16 11:50 | PM.PN ---
Subjective Subjective: Lisa reports she is doing okay. Certainly has some pain with dressing changes. Would like to try to go to a nursing facility as she does not believe she can handle the wet-to-dry, and wound care at home alone. Medications: Reviewed: Yes Vitals/I&O/Wt Last Vital Signs Temp 99.6 F 10/16/21 04:00 Pulse 81 10/16/21 08:25 Resp 20 H 10/16/21 08:25 BP 117/73 10/16/21 04:00 Pulse Ox 94 10/16/21 08:25 10/15/21 10/16/21 10/16/21 22:59 06:59 14:59 Intake Total 105.000 / 255.000 50 / 305.000 50 / 50 Output Total 410 / 415 Balance -305.000 / -160.000 50 / -110.000 50 / 50 Physical Exam Narrative: General exam is a female, no distress Neck supple Cardiovascular regular rate and rhythm Lungs clear Abdomen soft obese Right buttock with extensive tunnel decubitus, but now appears clean with less drainage. Surrounding erythema is improving. Extremities no cyanosis clubbing or edema Data : 10/16/21 07:46 10/16/21 07:46 Micro: Microbiology 10/14/21 01:57 Urine Culture - Final Urine,Clean Catch A&P Assessment and plan (1) Abscess and cellulitis of gluteal region: Significant decubitus, with surrounding cellulitis. No obvious drainable abscess on CT, as it appears to be spontaneously draining currently. 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
--- NOTE | 2021-10-16 12:51 | PM.PN ---
Subjective Subjective: Patient has done well overnight, no significant bleeding from the surgical site Vitals/I&O/Wt Last Vital Signs Temp 98.3 F 10/16/21 10:00 Pulse 86 10/16/21 10:00 Resp 18 10/16/21 12:33 BP 120/79 10/16/21 10:00 Pulse Ox 96 10/16/21 10:00 10/15/21 10/16/21 10/16/21 22:59 06:59 14:59 Intake Total 105.000 / 305.000 50 / 305.000 50 / 50 Output Total 410 / 415 550 / 550 Balance -305.000 / -110.000 50 / -110.000 -500 / -500 Physical Exam Narrative: Right gluteal area: Wound has good granulation tissue, no significant necrotic tissue, still has significant surrounding induration Data : 10/16/21 07:46 10/16/21 07:46 Micro: Microbiology 10/15/21 13:20 Gram Stain - Final Buttock Anaerobic Culture - Preliminary Wound Culture - Preliminary 10/14/21 01:57 Urine Culture - Final Urine,Clean Catch A&P Assessment and plan (1) S/P excisional debridement: Status post excisional debridement of necrotic skin and subcutaneous tissue in the right gluteal area, no significant bleeding, good granulation tissue Wet-to-dry dressing change once daily on discharge Follow-up with wound care clinic Status: Acute Attestations Medical Necessity Statement*: As per primary Coding Level of Care Code Acute Personnel Worker for [facility] Diagnoses S/P excisional debridement Z98.890
--- NOTE | 2021-10-16 20:11 | PC.NURSE ---
i reported low temp 96.8 and high reps 20 to nurse
[2021-10-16] MEDS: pantoprazole DR 40 mg Tablet PO (20:37)
[2021-10-16] MEDS: zolpidem 5 mg Tablet PO (20:37)
[2021-10-17] VITALS (11 sets, daily range): BP systolic 101–128; BP diastolic 51–64; PULSE 72–89; RESP 16–20; TEMP 36.4–37; O2SAT 95–98
--- NOTE | 2021-10-17 02:31 | PC.NURSE ---
i reported high reps 20 to nurse
[2021-10-17] MEDS: oxyCODONE-APAP 5-325 mg Tablet 1 TAB PO ×4 (05:27→20:08)
[2021-10-17] MEDS: piperacillin-tazobactam 3.375 GM in sodium chloride 0.9% (plus) 50 ML IV ×3 (05:49→21:22)
[2021-10-17] MEDS: FUROsemide 40 mg Tablet PO (05:50)
[2021-10-17 06:27] LABS: Basophils % 0.6 %; Eosinophils # 0.1 10^3/uL (0.0-0.8); Eosinophils % 3.9 %; Hematocrit 38.5 % (37.0-47.0); Hemoglobin 11.4 g/dL (11.5-15.3); Lymphocytes # 0.9 10^3/uL (0.8-4.8); Lymphocytes % 28.2 %; Mean Corpuscular HGB Conc 29.6 g/dL (30.0-36.0); Mean Corpuscular Hemoglobin 25.3 pg (28.0-34.0); Mean Corpuscular Volume 85.6 fl (81-99); Mean Platelet Volume 9.3 fL (7.4-10.4); Monocytes # 0.6 10^3/uL (0.2-0.9); Monocytes % 18.8 %; Neutrophils # 1.47 10^3/uL (1.8-7.7); Neutrophils % 47.9 %; Nucleated Red Blood Cells % 0 %; Platelet Count 277 10^3/cmm (130-400); Red Cell Distribution Width 21.1 % (12.1-15.1); White Blood Count 3.1 10^3/uL (4.0-10.0)
[2021-10-17 06:50] LABS: Anion Gap 10.1 (5-19); Blood Urea Nitrogen 10 mg/dL (6-20); Calcium 8.1 mg/dL (8.5-10.5); Carbon Dioxide 30 mmol/L (22-29); Chloride 104 mmol/L (98-107); Glomerular Filtration Rate 88.6 mL/min (90-130); Glucose 117 mg/dL (65-115); Osmolality Calculated 292 mOsm/kg (285-295); Potassium 3.1 mmol/L (3.5-5.1); Sodium 141 mmol/L (136-145)
[2021-10-17 09:07] LABS: Magnesium 2.1 mg/dL (1.7-2.3)
[2021-10-17] MEDS: potassium chloride ER 20 mEq Tablet 40 MEQ PO ×2 (09:26→15:19)
[2021-10-17] MEDS: buPROPion SR (12 HR) 100 mg Tablet 200 MG PO (09:26)
[2021-10-17] MEDS: potassium chloride ER 20 mEq Tablet PO (09:27)
[2021-10-17] MEDS: lamoTRIgine 100 mg Tablet PO ×2 (09:27→17:11)
[2021-10-17] MEDS: enoxaparin 40 mg/0.4 mL Syringe SUBCUT ×2 (09:27→17:11)
--- NOTE | 2021-10-17 10:54 | P.PN_ITS ---
Subjective Subjective: Lisa reports her pain is less. Thinks her packing has fallen out and wants the nurse to look at it. Medications: Reviewed: Yes Vitals/I&O/Wt Last Vital Signs Temp 98.6 F 10/17/21 08:00 Pulse 72 10/17/21 08:00 Resp 18 10/17/21 10:20 BP 101/54 10/17/21 08:00 Pulse Ox 95 10/17/21 08:00 10/16/21 10/17/21 10/17/21 22:59 06:59 14:59 Intake Total 640 / 930 50 / 980 50 / 50 Output Total 200 / 750 Balance 440 / 180 50 / 230 50 / 50 Physical Exam Narrative: General exam is a female, no distress Neck supple Cardiovascular regular rate and rhythm Lungs clear Abdomen soft obese Dressing right buttock Extremities no cyanosis clubbing or edema Data : 10/17/21 06:07 10/17/21 06:07 Micro: Microbiology 10/15/21 13:20 Gram Stain - Final Buttock Anaerobic Culture - Preliminary Wound Culture - Preliminary 10/14/21 01:57 Urine Culture - Final Urine,Clean Catch A&P Assessment and plan (1) Abscess and cellulitis of gluteal region: Significant decubitus, with surrounding cellulitis. No obvious drainable abscess on CT, as it appears to be spontaneously draining currently. 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 Check magnesium. Increase her daily potassium order. Full code Lovenox will suffice for DVT prophylaxis Appears to need nursing facility placement for wound care Attestations Medical Necessity Statement*: Needs continued hospitalization for IV antibiotics secondary to cellulitis and decubitus pending placement. 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
--- NOTE | 2021-10-17 12:11 | PC.SOCIAL ---
IMM update IMM updated with patient. Verbalized an understanding. Copy Pg 2 provided. Initialled, dated, timed, and placed in chart.
[2021-10-17] MEDS: alum-mag-hydroxide-sime 30 mL UDC PO (17:11)
[2021-10-17] MEDS: zolpidem 5 mg Tablet PO (20:08)
[2021-10-17] MEDS: pantoprazole DR 40 mg Tablet PO (20:08)
[2021-10-18] VITALS (12 sets, daily range): BP systolic 91–144; BP diastolic 49–80; PULSE 82–92; RESP 16–20; TEMP 36.4–37.1; O2SAT 93–98
[2021-10-18] MEDS: hyDROXYzine 25 mg Capsule 50 MG PO (03:17)
[2021-10-18 05:36] LABS: Anion Gap 12.1 (5-19); Blood Urea Nitrogen 11 mg/dL (6-20); Calcium 8.5 mg/dL (8.5-10.5); Carbon Dioxide 29 mmol/L (22-29); Chloride 105 mmol/L (98-107); Glomerular Filtration Rate 58.7 mL/min (90-130); Glucose 113 mg/dL (65-115); Osmolality Calculated 294 mOsm/kg (285-295); Potassium 4.1 mmol/L (3.5-5.1); Sodium 142 mmol/L (136-145)
[2021-10-18] MEDS: FUROsemide 40 mg Tablet PO (05:42)
[2021-10-18] MEDS: piperacillin-tazobactam 3.375 GM in sodium chloride 0.9% (plus) 50 ML IV ×3 (05:42→22:26)
[2021-10-18] MEDS: enoxaparin 40 mg/0.4 mL Syringe SUBCUT ×2 (08:37→17:54)
[2021-10-18] MEDS: buPROPion SR (12 HR) 100 mg Tablet 200 MG PO (08:37)
[2021-10-18] MEDS: potassium chloride ER 20 mEq Tablet 40 MEQ PO (08:37)
[2021-10-18] MEDS: lamoTRIgine 100 mg Tablet PO ×2 (08:37→17:54)
--- NOTE | 2021-10-18 09:08 | PC.RESP ---
RT Shift Note Frequent safety and respiratory rounds continue. Orders completed as indicated. Patient monitored pre and post treatments throughout shift. Patient [Did.] tolerate treatments appropriately. Condition [DidNotChange]. Patient and/or business development representative educated on respiratory treatment and medications. Patient and/or business development representative [verbalized understanding]. Will continue to monitor patient progress.
--- NOTE | 2021-10-18 12:57 | PM.PN ---
Subjective Subjective: Lisa reports she is doing okay. She gets a little dizzy when she makes quick movements in the bed. No headache. No focal weakness. She does not believe this is severe. She has no nausea. Medications: Reviewed: Yes Vitals/I&O/Wt Last Vital Signs Temp 98.1 F 10/18/21 11:27 Pulse 86 10/18/21 11:27 Resp 16 10/18/21 11:27 BP 144/80 10/18/21 11:27 Pulse Ox 94 10/18/21 11:27 10/17/21 10/18/21 10/18/21 22:59 06:59 14:59 Intake Total 650 / 900 770 / 1670 Balance 650 / 500 770 / 1270 Physical Exam Narrative: General exam is a female, no distress Neck supple Cardiovascular regular rate and rhythm Lungs clear Abdomen soft obese Dressing right buttock Extremities no cyanosis clubbing or edema Data : 10/17/21 06:07 10/18/21 04:53 Micro: Microbiology 10/15/21 13:20 Gram Stain - Final Buttock Anaerobic Culture - Preliminary Wound Culture - Preliminary A&P Assessment and plan (1) Abscess and cellulitis of gluteal region: Significant decubitus, with surrounding cellulitis. No obvious drainable abscess on CT, as it appears to be spontaneously draining currently. 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 Attestations Medical Necessity Statement*: Needs continued hospitalization pending placement. 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
[2021-10-18] MEDS: oxyCODONE-APAP 5-325 mg Tablet 1 TAB PO ×2 (13:31→22:35)
[2021-10-18] MEDS: pantoprazole DR 40 mg Tablet PO (20:45)
[2021-10-18] MEDS: zolpidem 5 mg Tablet PO (20:45)
[2021-10-19] VITALS (10 sets, daily range): BP systolic 117–128; BP diastolic 56–80; PULSE 79–98; RESP 15–20; TEMP 36.3–36.8; O2SAT 93–96
[2021-10-19] MEDS: oxyCODONE-APAP 5-325 mg Tablet 1 TAB PO ×3 (04:06→21:11)
[2021-10-19] MEDS: piperacillin-tazobactam 3.375 GM in sodium chloride 0.9% (plus) 50 ML IV ×3 (06:53→21:49)
[2021-10-19] MEDS: FUROsemide 40 mg Tablet 20 MG PO (06:53)
[2021-10-19] MEDS: buPROPion SR (12 HR) 100 mg Tablet 200 MG PO (09:27)
[2021-10-19] MEDS: potassium chloride ER 20 mEq Tablet 40 MEQ PO (09:27)
[2021-10-19] MEDS: lamoTRIgine 100 mg Tablet PO ×2 (09:27→17:07)
[2021-10-19] MEDS: enoxaparin 40 mg/0.4 mL Syringe SUBCUT ×2 (09:27→17:07)
--- NOTE | 2021-10-19 12:00 | P.PN_ITS ---
Subjective Subjective: Patient is a little bit of pain as the nurses are dealing with her wound. Otherwise nothing new today. Her cultures are largely bland. Vitals/I&O/Wt Last Vital Signs Temp 97.4 F L 10/19/21 08:48 Pulse 87 10/19/21 09:33 Resp 16 10/19/21 09:33 BP 117/68 10/19/21 08:48 Pulse Ox 95 10/19/21 09:33 10/18/21 10/19/21 10/19/21 22:59 06:59 14:59 Intake Total 50 / 340 450 / 790 290 / 290 Output Total 200 / 200 200 / 400 Balance -150 / 140 250 / 390 290 / 290 Physical Exam Narrative: Obese white female in she is remote obese white female in no distress. Neck/C-Spine: COMMON NORMALS: no JVD Resp: COMMON NORMALS: normal respiratory effort, No retractions, No use of accessory muscles, clear to auscultation bilaterally and percussion normal AUSCULTATION: clear to auscultation bilaterally PERCUSSION: percussion normal Cardio: COMMON NORMALS: no JVD, regular rate, regular rhythm, S1 normal heart sound present, S2 normal heart sound present, No gallops present (Cardio), No clicks present (Cardio), No murmurs present (Cardio), No rub (Cardio) and Peripheral pulses 2+ throughout RATE: regular rate RHYTHM: regular rhythm HEART SOUNDS: S1 normal heart sound present and S2 normal heart sound present PERIPHERAL PULSES: Peripheral pulses 2+ throughout GI: COMMON NORMALS: Normal to inspection, nondistended, normoactive bowel sounds present, Soft to palpation, non-tender, No hepatosplenomegaly present, no masses and no bruits PALPATION: Yes Soft to palpation and Yes No hepatosplenomegaly present Data : 10/17/21 06:07 10/18/21 04:53 Micro: Microbiology 10/13/21 22:42 Blood Culture - Final Blood NO GROWTH AFTER 5 DAYS 10/13/21 22:42 Blood Culture - Final Blood NO GROWTH AFTER 5 DAYS 10/15/21 13:20 Gram Stain - Final Buttock Anaerobic Culture - Preliminary Wound Culture - Final A&P Assessment and plan (1) Decubitus ulcer of sacral area: Status: Acute (2) Abscess and cellulitis of gluteal region: She needs placement, and [facility] is in the works. I have suggested that they contact [facility] as well if [facility] does not work out. Status: Acute Attestations Medical Necessity Statement*: She will need continued hospitalization she will need continued hospitalization until she has placement. Coding Level of Care Code Acute Service Sprinkler Helper for [facility] Diagnoses Decubitus ulcer of sacral area L89.159 Abscess and cellulitis of gluteal region L02.31; L03.317
[2021-10-19] MEDS: zolpidem 5 mg Tablet PO (21:12)
[2021-10-19] MEDS: pantoprazole DR 40 mg Tablet PO (21:12)
[2021-10-20] VITALS (12 sets, daily range): BP systolic 102–140; BP diastolic 53–73; PULSE 80–100; RESP 18–20; TEMP 36.3–37.1; O2SAT 90–95
[2021-10-20] MEDS: FUROsemide 40 mg Tablet 20 MG PO (06:13)
[2021-10-20] MEDS: piperacillin-tazobactam 3.375 GM in sodium chloride 0.9% (plus) 50 ML IV ×3 (06:14→22:17)
[2021-10-20] MEDS: lamoTRIgine 100 mg Tablet PO (08:22)
[2021-10-20] MEDS: potassium chloride ER 20 mEq Tablet 40 MEQ PO (08:22)
[2021-10-20] MEDS: enoxaparin 40 mg/0.4 mL Syringe SUBCUT ×2 (08:23→17:55)
[2021-10-20] MEDS: oxyCODONE-APAP 5-325 mg Tablet 1 TAB PO ×3 (08:25→22:37)
[2021-10-20] MEDS: buPROPion SR (12 HR) 100 mg Tablet 200 MG PO (08:25)
--- NOTE | 2021-10-20 12:14 | P.PN_ITS ---
Subjective Subjective: She is comfortable, and her wound is doing well. We think that we have her lined out for placement for rehab in the morning in [place]. Medications: Reviewed: Yes Vitals/I&O/Wt Last Vital Signs Temp 97.4 F L 10/20/21 08:00 Pulse 100 10/20/21 09:16 Resp 18 10/20/21 09:16 BP 113/69 10/20/21 08:00 Pulse Ox 95 10/20/21 09:16 10/19/21 10/20/21 10/20/21 22:59 06:59 14:59 Intake Total 290 / 580 50 / 630 50 / 50 Output Total Balance 290 / 580 50 / 630 49 / 49 Data : 10/17/21 06:07 10/18/21 04:53 Attestations Medical Necessity Statement*: She will need to be here until she has placement Coding Level of Care Code Acute Furnace Roaster for [facility]
[2021-10-20] MEDS: ondansetron 2 mg/ML SDV 2 mL 4 MG IVP (17:57)
[2021-10-20] MEDS: zolpidem 5 mg Tablet PO (22:17)
[2021-10-20] MEDS: pantoprazole DR 40 mg Tablet PO (22:17)
[2021-10-21 03:55] VITALS: BP 114/59; PULSE 84; RESP 17; TEMP 36.9; O2SAT 90
[2021-10-21] MEDS: FUROsemide 40 mg Tablet 20 MG PO (06:39)
[2021-10-21] MEDS: piperacillin-tazobactam 3.375 GM in sodium chloride 0.9% (plus) 50 ML IV (06:39)
[2021-10-21 07:57] VITALS: BP 102/55; PULSE 105; RESP 18; TEMP 36.7; O2SAT 90
[2021-10-21 08:00] VITALS: BP 102/55; PULSE 105; RESP 18; TEMP 36.7
[2021-10-21] MEDS: buPROPion SR (12 HR) 100 mg Tablet 200 MG PO (08:04)
[2021-10-21] MEDS: potassium chloride ER 20 mEq Tablet 40 MEQ PO (08:04)
[2021-10-21] MEDS: lamoTRIgine 100 mg Tablet PO (08:04)
[2021-10-21] MEDS: enoxaparin 40 mg/0.4 mL Syringe SUBCUT (08:05)
[2021-10-21] MEDS: oxyCODONE-APAP 5-325 mg Tablet 1 TAB PO (08:37)
[2021-10-21] MEDS: doxycycline 100 mg Tablet PO (08:39)
[2021-10-21 09:21] VITALS: PULSE 88; RESP 18; O2SAT 95
--- NOTE | 2021-10-21 09:22 | PC.RESP ---
RT Shift Note Frequent safety and respiratory rounds continue. Orders completed as indicated. Patient monitored pre and post treatments throughout shift. Patient [Did.] tolerate treatments appropriately. Condition [.DidNotChange]. Patient and/or sales representative door to door educated on respiratory treatment and medications. Patient and/or sales representative door to door [verbalized understanding]. Will continue to monitor patient progress.
--- NOTE | 2021-10-21 10:32 | PM.PN ---
Subjective Subjective: Status post debridement of gluteal wound last week. Patient is waiting for prison Vitals/I&O/Wt Last Vital Signs Temp 98.0 F 10/21/21 08:00 Pulse 88 10/21/21 09:21 Resp 18 10/21/21 09:21 BP 102/55 10/21/21 08:00 Pulse Ox 95 10/21/21 09:21 10/20/21 10/21/21 10/21/21 22:59 06:59 14:59 Intake Total 290 / 630 50 / 630 480 / 480 Output Total 120 / 431 310 / 431 Balance 170 / 199 -260 / 199 480 / 480 Physical Exam Narrative: Dressings dry and intact, they had already been changed and therefore I did not remove them. Wound had good granulation tissue as per nursing staff Data : 10/17/21 06:07 10/18/21 04:53 Micro: Microbiology 10/15/21 13:20 Gram Stain - Final Buttock Anaerobic Culture - Preliminary Wound Culture - Final A&P Assessment and plan (1) S/P excisional debridement: Status post excisional debridement of necrotic skin and subcutaneous tissue in the right gluteal area, no significant bleeding, good granulation tissue Wet-to-dry dressing change once daily on discharge Follow-up with wound care clinic Status: Acute Attestations Medical Necessity Statement*: As per primary Coding Level of Care Code Acute Chemical Production Technician for [facility] Diagnoses S/P excisional debridement Z98.890
--- NOTE | 2021-10-21 11:23 | PC.SOCIAL ---
IMM Update Pg. 2 of IMM updated and reviewed with patient, copy provided.
[2021-10-21 12:00] VITALS: BP 110/75; PULSE 97; RESP 18; TEMP 36.4; O2SAT 91
[2021-10-21 14:56] LABS: SARS Covid-2 Antigen Negative (Negative)
[2021-10-21 17:08] VITALS: BP 110/75; PULSE 97; RESP 18; TEMP 36.4; O2SAT 91
--- NOTE | 2021-10-21 19:03 | P.DS_ITS ---
Discharge Providers Date of Admission: 10/14/21 00:49 Date of Discharge: October 21, 2021 Attending Provider at Admission: Grady Vigil MD Attending Provider at Discharge: Austin Covarrubias MD Primary Care Provider: JOSE A Thacker Diagnoses at Discharge Discharge Diagnosis (1) S/P excisional debridement: Status: Acute Reason for Visit Reason for Visit: BED SORE Hospital Course Hospital Course Lisa is a 61-year-old white female who presented with concerns of cellulitis, and infected decubitus on her right buttock to the emergency department. She was placed on vancomycin and Zosyn and a surgery consultation was obtained. I&D of the area occurred on October 15 which she tolerated well. Following that it was apparent she would need wound care at a nursing facility. This was arranged on October 21 and she was discharged. She will follow-up in wound clinic. She will complete 7 days of doxycycline. Cultures of the decubitus did not have growth at discharge. Physical Exam Narrative: General exam no distress Neck is supple Cardiovascular regular rate and rhythm Lungs clear Abdomen is soft Extremities no cyanosis clubbing or edema Right buttocks with dressing Discharge Data Studies Completed and Pending Completed Studies During Hospitalization Category Date Time Status CT abdomen pelvis w con* [id number] Urgent Cat Scan 10/13/21 22:48 Completed Pending at discharge Category Date Time Status Anaerobic Culture Routine Lab 10/15/21 13:20 Results Wound Culture and Gram Stain Routine Lab 10/15/21 13:20 Results Radiology Impressions Abdomen/Pelvis CT 10/13/21 22:48 IMPRESSION: Soft tissue infection is seen in the right gluteal fat extending along the right posterior medial perineum with no definitive extension above pelvic floor identified. Mild asymmetric thickening right puborectalis muscle. Laboratory Results WBC 3.1 10^3/uL (4.0-10.0) L 10/17/21 06:07 RBC 4.50 10^6/uL (4.1-5.3) 10/17/21 06:07 Hgb 11.4 g/dL (11.5-15.3) L 10/17/21 06:07 Hct 38.5 % (37.0-47.0) 10/17/21 06:07 MCV 85.6 fl (81-99) 10/17/21 06:07 MCH 25.3 pg (28.0-34.0) L 10/17/21 06:07 MCHC 29.6 g/dL (30.0-36.0) L 10/17/21 06:07 RDW 21.1 % (12.1-15.1) H 10/17/21 06:07 Plt Count 277 10^3/cmm (130-400) 10/17/21 06:07 MPV 9.3 fL (7.4-10.4) 10/17/21 06:07 Neut % (Auto) 47.9 % 10/17/21 06:07 Lymph % (Auto) 28.2 % 10/17/21 06:07 [place] % (Auto) 18.8 % 10/17/21 06:07 Eos % (Auto) 3.9 % 10/17/21 06:07 Baso % (Auto) 0.6 % 10/17/21 06:07 Neut # (Auto) 1.47 10^3/uL (1.8-7.7) L 10/17/21 06:07 Lymph # (Auto) 0.9 10^3/uL (0.8-4.8) 10/17/21 06:07 [place] # (Auto) 0.6 10^3/uL (0.2-0.9) 10/17/21 06:07 Eos # (Auto) 0.1 10^3/uL (0.0-0.8) 10/17/21 06:07 Baso # (Auto) 0.0 10^3/uL (0.0-0.1) 10/17/21 06:07 Nucleated RBC % (auto) 0 % 10/17/21 06:07 Nucleated RBCs # 0.0 /100WBC 10/17/21 06:07 ESR 1 mm/hr (0-15) 10/13/21 22:42 Sodium 142 mmol/L (136-145) 10/18/21 04:53 Potassium 4.1 mmol/L (3.5-5.1) 10/18/21 04:53 Chloride 105 mmol/L (98-107) 10/18/21 04:53 Carbon Dioxide 29 mmol/L (22-29) 10/18/21 04:53 Anion Gap 12.1 (5-19) 10/18/21 04:53 BUN 11 mg/dL (6-20) 10/18/21 04:53 Creatinine 1.0 mg/dL (0.5-0.9) H 10/18/21 04:53 GFR Calculation 58.7 mL/min (90-130) L 10/18/21 04:53 Glucose 113 mg/dL (65-115) 10/18/21 04:53 Calculated Osmolality 294 mOsm/kg (285-295) 10/18/21 04:53 Lactate 2.0 mmol/L (0.5-2.2) 10/13/21 22:42 Calcium 8.5 mg/dL (8.5-10.5) 10/18/21 04:53 Magnesium 2.1 mg/dL (1.7-2.3) 10/17/21 06:07 Total Bilirubin 0.3 mg/dL (0.15-1.2) 10/13/21 22:42 AST 19 U/L (0-32) 10/13/21 22:42 ALT 26 U/L (0-33) 10/13/21 22:42 Alkaline Phosphatase 82 IU/L (35-105) 10/13/21 22:42 C-Reactive Protein 2.9 mg/L (0.0-4.9) 10/13/21 22:42 Total Protein 5.2 g/dL (6.6-8.7) L 10/13/21 22:42 Albumin 3.2 g/dL (3.5-5.2) L 10/13/21 22:42 Globulin 2.0 g/dL (1.3-4.6) 10/13/21 22:42 Procalcitonin 0.09 ng/mL (0-0.5) 10/13/21 22:42 Urine Color Yellow (Yellow) 10/14/21 01:57 Urine Appearance Sl cloudy (CLEAR) A 10/14/21 01:57 Urine pH 5 (5-7) 10/14/21 01:57 Ur Specific Lee 1.015 (1.005-1.030) 10/14/21 01:57 Urine Protein 1+ (Negative) H 10/14/21 01:57 Urine Glucose (UA) Norm (Normal) 10/14/21 01:57 Urine Ketones Negative (Negative) 10/14/21 01:57 Urine Blood 3+ (Negative) H 10/14/21 01:57 Urine Nitrate Negative (Negative) 10/14/21 01:57 Urine Bilirubin Neg (Negative) 10/14/21 01:57 Urine Urobilinogen Norm mg/dL (Negative) 10/14/21 01:57 Ur Leukocyte Esterase 2+ (Negative) H 10/14/21 01:57 Urine RBC >100 /hpf (0-2) H 10/14/21 01:57 Urine WBC Too numerous to cnt /hpf (0-5) H 10/14/21 01:57 Ur Squamous Epith Cells 0-4 /hpf (0-5) H 10/14/21 01:57 Amorphous Sediment Not Reportable 10/14/21 01:57 Urine Bacteria 3+ /hpf (NONE) H 10/14/21 01:57 Vancomycin Trough 26.8 ug/mL (10-15) H* 10/15/21 09:42 SARS-CoV-2 Ag (Rapid) Negative (Negative) 10/21/21 14:00 Vitals Last Vital Signs Temp 97.5 F L 10/21/21 17:08 Pulse 97 10/21/21 17:08 Resp 18 10/21/21 17:08 BP 110/75 10/21/21 17:08 Pulse Ox 91 10/21/21 17:08 Discharge Plan Discharge Patient Disposition: Xfer SNF Condition: Stable Prescriptions: New furosemide 40 mg Tablet 20 mg PO QAM Qty: 15 0RF doxycycline monohydrate 100 mg Tablet 100 mg PO BID Qty: 14 0RF Continued potassium chloride 10 mEq tablet,ER particles/crystals 20 meq PO DAILY 0RF hydroxyzine HCl 50 mg tablet 50 mg PO BID PRN (Reason: anxiety) Qty: 60 3RF hydrocodone-acetaminophen 5-325 mg tablet 1 tab PO QID PRN (Reason: Pain) 0RF omeprazole 20 mg capsule,delayed release(DR/EC) 20 mg PO BEDTIME 0RF albuterol sulfate 90 mcg/actuation HFA aerosol inhaler 2 puff INHALATION QID PRN (Reason: Shortness Of Breath) 0RF lamotrigine 100 mg tablet 100 mg PO BID 0RF fluticasone propion-salmeterol [Advair Diskus] 250-50 mcg/dose blister with device 1 inh inhalation BID Qty: 30 0RF bupropion HCl 200 mg tablet sustained-release 12 hr 200 mg PO QAM 0RF Ambien 5 mg Tablet 5 mg PO BEDTIME 0RF Spiriva with HandiHaler 18 mcg capsule, w/inhalation device 1 cap inhalation DAILY 0RF Rx Instructions: puncture 1 cap using device; one dose = 2 inhalations ferrous gluconate 324 mg (37.5 mg iron) tablet 324 mg PO BIDWM 0RF hydrocortisone 2.5 % cream with perineal applicator See Rx Instructions .ROUTE .COMPLEX 0RF Rx Instructions: as directed prn Discontinued furosemide 20 mg tablet 20 - 40 mg PO QAM 0RF benzonatate 100 mg Capsule 200 mg PO TID PRN (Reason: cough) Qty: 10 0RF Rx Instructions: rx written on 10/04/21 -pt states she hasnt started taking this medication azithromycin 500 mg tablet 500 mg PO DAILY 0RF dexamethasone 6 mg tablet 6 mg PO DAILY 0RF ascorbic acid (vitamin C) [Vitamin C] 500 mg tablet 500 mg PO BID 0RF zinc gluconate 50 mg tablet 50 mg PO DAILY 0RF Eliquis 5 mg tablet 5 mg PO BID@0900,2100 0RF Discharge Orders: Discharge Order (Routine); Ordered 10/21/21 Ordered By: Ashley Flores Referrals: [facility] [Outside] Jovana Coronado FNP [Primary Care Provider] - Steve Marin MD [Physician] - (As needed) WOUND [facility]ARE [facility], [Staff Physician] - 4-7 days (WILL SEE WOUND CARE NURSE IN [facility]) Discharge Diet: Regular Discharge Activity: Increase activity as tolerated Patient Instructions: Furosemide (By mouth), Doxycycline (By mouth) Activity Restrictions/Additional Instructions: Diet Normal diet as tolerated, increase fluid intake as much as possible. Activity Ad kleber. Return to work/school You can return to work/ school whenever you feel ready as long as you don?t have to lift more than 10 pounds at work. If you have paperwork that needs to be completed for time off from work, please contact my office Driving You can resume driving once you stop using narcotic pain medications, and transition to non-opioid pain medications like Tylenol, Motrin, Aleve, etc. Shower It is ok to shower . Do not soak in bathtub, swimming pool or hot tub for 2 weeks. Wound care Irrigate wound with saline and pack with Kerlix gauze wet-to-dry once daily Problems with the wound: you can develop some redness around the incision from bruising after surgery. If there is increasing pain, redness, tenderness around the incision with or without drainage, please return to the ER rule out an infection. Follow-up in wound care clinic early next week Contact physician Call the office at [phone] during office hours or go the Emergency Room ?Fever to 100.4 or greater ?Shaking chills ?Pain that increases over time ?Redness, warmth, or pus draining from incision sites ?Persistent nausea or inability to take in liquids Take all medicine as prescribed Arrange follow-up with wound clinic prior to discharge, to see within the next 3 to 4 days Follow-up with primary care provider at [facility] in 3 to 5 days. Discharge Attestations Time Spent in Discharge Care*: greater than 30 min Status at Discharge: Cognitive status at discharge: mildly impaired cognition , Behavioral status at discharge: cooperative , Quality Metrics Clinical Quality Measures [ No reported AMI, CVA or VTE this stay] Coding Level of Care Code Acute [facility] note Diagnoses S/P excisional debridement Z98.890
== END 2021-10-21 17:08 | disposition skilled nursing facility (03) ==
LOC: ER 10-14 01:09 → ER IP 10-14 04:20 → MEDSURG 10-14 14:09 → ER IP 10-17 10:12 → MEDSURG 10-17 10:12
PROVIDERS: Surgery; Admitting Provider Internal Medicine; Emergency Provider Emergency Medicine; PCP Nurse Practitioner Family; Visit Provider Internal Medicine
PROC: (CPT 11042; principal; 2021-10-15 13:00)
DX: L89.159 Pressure ulcer of sacral region, unspecified stage (principal); L03.317 Cellulitis of buttock; L02.31 Cutaneous abscess of buttock; F43.12 Post-traumatic stress disorder, chronic; G40.219 Localization-related (focal) (partial) symptomatic epilepsy and epileptic syndromes with complex partial seizures, intractable, without status epilepticus; J45.909 Unspecified asthma, uncomplicated; E66.01 Morbid (severe) obesity due to excess calories; Z68.45 Body mass index [BMI] 70 or greater, adult; Z86.16 Personal history of COVID-19; Z82.49 Family history of ischemic heart disease and other diseases of the circulatory system; Z83.3 Family history of diabetes mellitus; Z82.3 Family history of stroke; G47.33 Obstructive sleep apnea (adult) (pediatric)
CPT/HCPCS: 11042; 11045 ×2; 36410; 36415; 74177; 80048; 80053; 80202; 81001; 83605; 83735; 84145; 85025; 85651; 86140; 87040; 87070; 87075; 87077; 87086; 87205; 87426; 94640; 96365; 96366; 96367; 96372; 97110; 97161; 97530; 99285; G0378; J1650; J2405; J2543; J2704; J3370; J3480; J3490; J7030; Q9967

== ENCOUNTER → 2022-08-20 14:49 | Outpatient (BNVA) | payer MEDICARE, MEDICAID, SELFPAY | PROVIDERS: PCP Internal Medicine; Visit Provider Specialist | DX: G40.219 Localization-related (focal) (partial) symptomatic epilepsy and epileptic syndromes with complex partial seizures, intractable, without status epilepticus (principal) | CPT/HCPCS: 99214 ==

== ENCOUNTER → 2023-10-01 12:15 | Outpatient (BNVA) | payer OTHER, MEDICAID, SELFPAY | PROVIDERS: PCP Nurse Practitioner Family; Visit Provider Specialist | DX: G40.219 Localization-related (focal) (partial) symptomatic epilepsy and epileptic syndromes with complex partial seizures, intractable, without status epilepticus (principal) | CPT/HCPCS: 99213 ==

== ENCOUNTER → 2024-06-08 09:54 | Outpatient (BNVA) | payer MEDICARE, SELFPAY | PROVIDERS: PCP Nurse Practitioner Family; Referring Provider Nurse Practitioner Family; Visit Provider Surgery | DX: K92.1 Melena (principal) | CPT/HCPCS: 99204; 99214 ==

== ENCOUNTER 2024-06-28 06:02 | Day surgery (SDC) | payer MEDICARE, MEDICAID, SELFPAY ==
--- NOTE | 2024-06-28 05:56 | W.PM.OPSUD ---
Surgery/Procedure H&P Update DATE OF PROCEDURE: June 28, 2024 DATE H&P PERFORMED: 06/08/24 H&P UPDATE INFORMATION: I have reviewed H&P completed within last 30 days, I have examined patient prior to procedure, No changes to prior documentation and H&P is in [facility] EMR on date indicated PLANNED PROCEDURE: Operation Date: 06/28/24 07:00 Proposed Procedures p Colonoscopy- 73324, G0105,K92.1(Not Applicable) - Jordan Mckay MD
[2024-06-28 06:10] VITALS: BP 190/68; PULSE 76; RESP 17; TEMP 37.2; O2SAT 94; BMI 76.5
[2024-06-28 06:37] LABS: OR HCG Qualitative Urine Negative (Negative)
[2024-06-28] MEDS: sodium chloride 0.9% 1,000 ML 30 ML IV (06:38)
--- NOTE | 2024-06-28 06:53 | ANES.PREANE2 ---
Pre-Anesthetic Assessment Height/Weight: Height 1.5 m Weight 171.912 kg Temp Pulse Resp BP Pulse Ox O2 Del Method 98.9 F 76 17 190/68 94 Room Air 06/28/24 06:10 06/28/24 06:10 06/28/24 06:10 06/28/24 06:10 06/28/24 06:10 06/28/24 06:10 Operation Date: 06/28/24 07:00 Proposed Procedures p Colonoscopy- 20148, G0105,K92.1(Not Applicable) - Jordan Mckay MD Was Beta Gemini taken within 24 hours: N/A Was Clonidine taken within 24 hours: N/A Last intake: Intake Last Liquid Date 06/27/24 Last Liquid Time 23:30 Last Solid Date 06/26/24 Last Solid Time 23:30 Social No alcohol and No tobacco Exam alert and oriented x 3 Airway Submandibular: within normal limits Cervical ROM: within normal limits Mallampati: Class II Dentition: false (left at home) History/ROS No significant history except as noted Pulmonary Asthma (seasonal) and Sleep Apnea (does not use CPAP) CV/HEM Congestive Heart Failure (water pill for 'abdomenal bulge') and Hypertension None reported Hepatic None reported GI Gastroesophageal Reflux Disease Metabolic Morbid Obesity Musc/skel Lower Back Pain (spinal stenosis; uses wheelchair) Neuropsych Anxiety, Bipolar (psych history of borderline ) and Seizure (1.5 year ago) Anesthetic Plan ASA status: 3 Anesthesia: MAC Risk of > 500 ml blood loss (7ml/kg in children): No Medications/Allergies Home Medications Medication Instructions Recorded Confirmed Last Taken Type potassium chloride 10 mEq 20 meq PO DAILY 11/29/20 06/28/24 06/27/24 History tablet,extended release(part/cryst) albuterol sulfate 90 mcg/actuation 2 puff inhalation QID PRN 09/30/21 06/28/24 06/27/24 History aerosol inhaler Shortness Of Breath omeprazole 20 mg capsule,delayed 20 mg PO BEDTIME 09/30/21 06/28/24 06/22/24 History release furosemide 40 mg tablet 20 mg (1/2 x 40 mg) PO QAM #15 tabs 10/21/21 06/28/24 06/27/24 Rx hydrocodone 5 mg-acetaminophen 325 1 tab PO QID PRN Pain 1 month #60 01/20/22 06/28/24 06/27/24 Rx mg tablet tabs bupropion HCl 200 mg tablet,12 hr 200 mg PO .noon #90 tabs 02/09/24 06/28/24 06/27/24 Rx sustained-release (Wellbutrin SR) hydroxyzine HCl 50 mg tablet 50 mg PO BID PRN anxiety #60 tabs 02/09/24 06/28/24 Unknown Rx zolpidem 5 mg tablet (Ambien) 5 mg PO BEDTIME #30 tabs 02/09/24 06/28/24 06/26/24 Rx polyethylene glycol 3350 17 17 g PO DAILY #238 grams 06/08/24 06/28/24 06/22/24 Rx gram/dose oral powder (Miralax) ondansetron 8 mg disintegrating 8 mg PO Q8H PRN nausea and 06/22/24 06/28/24 06/22/24 Rx tablet vomiting #10 tabs hydrocortisone 2.5 % topical cream 1 applic AR QID PRN hemorrhoids 06/23/24 06/28/24 06/27/24 History with perineal applicator (Anusol-HC) lamotrigine 100 mg tablet 100 mg PO BID 06/23/24 06/28/24 06/27/24 History Allergies Allergy/AdvReac Type Severity Reaction Status Date / Time aripiprazole [From Abilify] Allergy Unknown Verified 06/23/24 12:42 fluoxetine [From Prozac] Allergy Unknown Verified 06/23/24 12:42 haloperidol [From Haldol] Allergy Unknown Verified 06/23/24 12:42 Sulfa (Sulfonamide Allergy Unknown Verified 06/23/24 12:42 Antibiotics) Current Medications Generic Name Dose Route Start Last Admin Trade Name Freq PRN Reason Stop Dose Admin Sodium Chloride 1,000 mls @ 30 mls/hr 06/28/24 06:15 06/28/24 06:38 Sodium Chloride 0.9% IV 06/29/24 06:14 30 mls/hr .Q24H BARB Administration PFSH Anesthesia Medical History (Updated 06/08/24 @ 10:06 by Tiffany Andrade MA) Bereavement Passing of mother 09/12/21 Obstructive sleep apnea Psychiatric care Morbid obesity Sleep apnea Intellectual functioning disability History of since child lucas Borderline personality disorder Chronic post-traumatic stress disorder Major depressive disorder, recurrent episode, moderate with anxious distress 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 Family History (Updated 06/08/24 @ 10:05 by Tiffany Andrade MA) Mother Diabetes Heart disease Hyperlipidemia Stroke Grandfather Diabetes Paternal Family/Other Diabetes Maternal Aunt Grandmother Heart disease Maternal Unknown Colon cancer Other Breast cancer Social History Smoking and tobacco/nicotine status: never used tobacco/nicotine Alcohol intake: never Substance/Drug Use: never Data Anesthesia Cardiac Studies: Echocardiogram 10/01/21
[2024-06-28 07:48] VITALS: BP 107/68; PULSE 84; RESP 16; TEMP 36.2; O2SAT 94
[2024-06-28 07:58] VITALS: BP 106/82; PULSE 76; RESP 16; O2SAT 98
[2024-06-28 08:09] VITALS: BP 128/74; PULSE 71; RESP 16; O2SAT 96
--- NOTE | 2024-06-28 08:20 | ANE.PACU2 ---
Inpatient post-anesthesia follow up: Airway intact: Yes Vital signs: Temperature 97.1 F Pulse Rate 71 Respiratory Rate 16 Blood Pressure 128/74 Pulse Oximetry 96 Oxygen Delivery Me thod Room Air Oxygen Flow Rate Fraction of Inspir ed Oxygen Hydration adequate: Yes Nausea and vomiting: No Pain level: 1 Mental status: Baseline
== END 2024-06-28 08:23 | disposition home or self-care (01) ==
PROVIDERS: Anesthesiology; PCP Nurse Practitioner Family; Visit Provider Surgery
PROC: 0DJD8ZZ Inspection of Lower Intestinal Tract, Via Natural or Artificial Opening Endoscopic (ICD-10-PCS; CPT 45378; principal; 2024-06-28 07:00)
DX: K92.1 Melena (principal); D12.2 Benign neoplasm of ascending colon; D12.5 Benign neoplasm of sigmoid colon; D12.8 Benign neoplasm of rectum; J45.909 Unspecified asthma, uncomplicated; I11.0 Hypertensive heart disease with heart failure; I50.9 Heart failure, unspecified; K21.9 Gastro-esophageal reflux disease without esophagitis; Z99.3 Dependence on wheelchair; G47.33 Obstructive sleep apnea (adult) (pediatric)
CPT/HCPCS: 45380; 45385; 81025; 88305; J2704; J7030

== ENCOUNTER → 2024-07-12 08:46 | Outpatient (BNVA) | payer MEDICARE, MEDICAID, SELFPAY | PROVIDERS: PCP Nurse Practitioner Family; Visit Provider Surgery | DX: Z09 Encounter for follow-up examination after completed treatment for conditions other than malignant neoplasm (principal); R03.0 Elevated blood-pressure reading, without diagnosis of hypertension | CPT/HCPCS: 99213 ==

== ENCOUNTER → 2024-09-30 14:15 | Outpatient (BNVA) | payer MEDICARE, SELFPAY | PROVIDERS: PCP Nurse Practitioner Family; Visit Provider Specialist | DX: G40.219 Localization-related (focal) (partial) symptomatic epilepsy and epileptic syndromes with complex partial seizures, intractable, without status epilepticus (principal); L89.92 Pressure ulcer of unspecified site, stage 2; Z63.4 Disappearance and death of family member | CPT/HCPCS: 99214 ==

== ENCOUNTER → 2024-10-27 13:05 | Outpatient (BNVA) | payer MEDICARE, SELFPAY | PROVIDERS: PCP Nurse Practitioner Family; Visit Provider Thoracic Surgery (Cardiothoracic Vascular Surgery) | DX: L89.891 Pressure ulcer of other site, stage 1 (principal) | CPT/HCPCS: 99203 ==

== ENCOUNTER → 2025-04-20 09:48 | Outpatient (BNVA) | payer MEDICARE, SELFPAY | PROVIDERS: PCP Nurse Practitioner Family; Visit Provider Nurse Practitioner Family | DX: R60.0 Localized edema (principal); L57.8 Other skin changes due to chronic exposure to nonionizing radiation; L81.4 Other melanin hyperpigmentation; D48.5 Neoplasm of uncertain behavior of skin | CPT/HCPCS: 11102; 99204 ==